=== PATIENT | male | born 1960 | race Caucasian/White ===

== ENCOUNTER 2016-12-21 11:04 | Inpatient (IN) | payer MEDICARE, OTHER ==
[~2016-12-21] VITALS: Ht 195.6 cm; Wt 123.9 kg
[~2016-12-21 11:04] MED LIST: AMLO10TA2 PO; CLON0.1T PO; ESOM20CA PO; FENO48TA16 PO; FURO20TA3 PO; INSU100C4 SQ; INSU100V8 SQ; LIRA0.6P2 SQ; LISI40TA PO; PHEN15TA2 PO; SIMV10TA3 PO; SPIR25TA3 PO; TAMS0.4C2 PO
--- NOTE | 2016-12-21 11:29 | PHYS DOC ---
Adult General Chief Complaint Chief Complaint: HYPERGLYCEMIA HPI HPI Patient is a 56-year-old male brought to the ED by family members with the complaint of elevated blood sugar. Patient is a diabetic, also a peritoneal dialysis patient. Patient states that he has been sick with a cold since about last week and his blood sugars have been running high. Also for the last few days he feels like his gastritis has been flaring up and is had a decreased appetite. He did see Dr. Momin and is taking Carafate for that. Patient has had a cough, no shortness of air. He's had a decreased appetite and abdominal discomfort has improved since starting Carafate. His usual regimen is NovoLog 70/30, 35 units in the morning, 55 units at noon, 45 units with dinner. Lantus 75 mg at bedtime. For about 2-3 days, he has been out of NovoLog and has been substituting Humalog. Last dose of insulin was 55 units of Humalog about 10:30 this morning. His Accu- Chek had been greater than 600 at that time. Patient does peritoneal dialysis every night. He has not missed dialysis. PCP Dr. Momin [place] [employer] Member Dr. Paulino Review of Systems Review of Systems Constitutional: Denies fever or chills [] HENT: He had a cold last week which is clearing up Respiratory: He still has a cough, nonproductive Cardiovascular: Denies chest pain GI: As in history of present illness : He does make urine Musculoskeletal: Denies back pain or joint pain [] Integument: Denies rash or skin lesions [] Neurologic: Denies headache, focal weakness or sensory changes [] Endocrine: Positive for polyuria since his blood sugar has been running high Allergies Allergies Allergies Coded Allergies Type Severity Reaction Last Updated Verified adhesive Allergy Unknown 08/14/14 Yes latex Allergy Unknown 08/14/14 Yes Physical Exam Physical Exam Constitutional: Well developed, well nourished, no acute distress, non-toxic appearance. Appears to not feel well but is alert and mentating normally, warm and dry. HENT: Normocephalic, atraumatic, bilateral external ears normal, nose normal. [ ] Eyes: conjunctiva normal, no discharge. [] Neck: Normal range of motion, no stridor. [] Cardiovascular:Heart rate regular rhythm, no murmur [] Lungs & Thorax: Bilateral breath sounds clear to auscultation [] Abdomen: Bowel sounds normal, soft, no tenderness, nondistended, no masses, no pulsatile masses. PD catheter noted in the abdominal wall with bandage. Skin: Warm, dry, no erythema, no rash. [] Extremities: No tenderness, no cyanosis, no clubbing, ROM intact, no edema. [] Neurologic: Alert and oriented X 3, normal motor function, normal sensory function, no focal deficits noted. [] EKG EKG 12-lead EKG read by me. Sinus rhythm. Heart rate 89. There are no acute ST or T wave changes indicative of ischemia or infarction. No STEMI. No other abnormality. 1135[] Radiology/Procedures Radiology/Procedures One view portable chest x-ray read by the radiologist. No acute findings.[] Course & Med Decision Making Course & Med Decision Making Pertinent Labs and Imaging studies reviewed. (See chart for details) 56-year-old male, diabetic, dialysis patient, presents with elevated blood sugar for several days, greater than 600 today. He did recently run out of NovoLog 70/30 but he has been substituting Humalog, that seems unlikely to be contributing. His sugar was running high before that happened. Likely trigger is an illness with a cold last week, continued cough, and some abdominal discomfort for a few days that he attributes to gastritis. I advised the patient we will get some labs, chest x-ray, EKG, and give him some IV fluids and insulin, and we will anticipate admission. He is agreeable to that plan. Labs concerning for marked hyperglycemia at 1234. Elevated lipase over 6000. The patient remained stable and talkative. He did complain of some abdominal discomfort and I ordered fentanyl for that. I discussed the case with Dr. Momin, who would like to admit the patient to the ICU. We agreed that the patient is stable at this time and can be admitted to [facility]. He will admit the patient. I wrote bridge orders. [] Dragon Disclaimer Dragon Disclaimer This chart was dictated in whole or in part using Voice Recognition software in a busy, high-work load, and often noisy Emergency Department environment. It may contain unintended and wholly unrecognized errors or omissions. Departure Departure: Impression: Primary Impression: Hyperglycemia due to type 2 diabetes mellitus Additional Impressions: Pancreatitis Dehydration Disposition: ADMITTED INPATIENT Admitting Physician: Baron Momin Condition: STABLE Referrals: BARON MOMIN MD (PCP) Problem Qualifiers EGRRI DALAL MD Dec 21, 2016 11:29
[2016-12-21] MEDS ORDERED: INSULIN REGULAR 100 UNIT/ML 10ML VIAL. IV ONE (11:45)
[2016-12-21] MEDS ORDERED: IV NORMAL SALINE 500ML 500 ML IV ONE (11:45)
[2016-12-21 11:46] LABS: BASO % 1 % (0-3); EOS # 0.1 x10^3/uL (0.0-0.7); EOS % 2 % (0-3); HEMATOCRIT 32.6 % (39.0-53.0); HEMOGLOBIN 11.2 g/dL (13.0-17.5); LYMPH # 0.6 x10^3/uL (1.0-4.8); LYMPH % 8 % (24-48); MEAN CORPUSCULAR HEMOGLOBIN 33 pg (25-35); MEAN CORPUSCULAR HGB CONC 34 g/dL (31-37); MEAN CORPUSCULAR VOLUME 95 fL (79-100); MONO # 0.2 x10^3/uL (0.0-1.1); MONO % 3 % (0-9); NEUT # 6.3 x10^3uL (1.8-7.7); NEUT % 86 % (31-73); PLATELET COUNT 180 x10^3/uL (140-400); RED BLOOD COUNT 3.43 x10^6/uL (4.30-5.70); RED CELL DISTRIBUTION WIDTH 12.9 % (11.5-14.5); WHITE BLOOD COUNT 7.3 x10^3/uL (4.0-11.0)
--- NOTE | 2016-12-21 11:49 | RAD ---
Indication cough. Hypertension. A single view of the chest was obtained. Comparison is made to an examination April 21, 2007. The heart and pulmonary vessels are normal. The mediastinum has a normal appearance. Granulomas in the left lung are noted, unchanged. There has not been a significant change in the appearance of the chest compared to the previous exam. IMPRESSION: No acute or focal process. No significant change
[2016-12-21 12:02] LABS: ALBUMIN 2.9 g/dL (3.4-5.0); ALBUMIN/GLOBULIN RATIO 0.7 (1.0-1.7); CALCIUM 9.3 mg/dL (8.5-10.1); CREATININE 7.2 mg/dL (0.7-1.3); POTASSIUM 3.4 mmol/L (3.5-5.1); TOTAL BILIRUBIN 0.6 mg/dL (0.2-1.0)
--- NOTE | 2016-12-21 12:17 | EKG ---
[address] [address] Test Date: 2016-12-21 Test Time: 11:35:32 Pat Name: LOY KLEIN Department: Room: Gender: M Water/Wastewater Engineer: HAN : 1960 Requested By: GERRI DALAL Order Number: [id number] Reading MD: Itz Kurtz Measurements Intervals [place] Rate: 89 P: -58 NC: 152 QRS: 26 QRSD: 118 T: 42 QT: 372 QTc: 459 Interpretive Statements SINUS RHYTHM Electronically Signed On 12-26-2016 10:22:35 CDT by Itz Kurtz
[2016-12-21 12:34] LABS: BACTERIA,URINE 0 /HPF (0-FEW); BILIRUBIN,URINE NEG (NEG); CLARITY,URINE CLEAR; COLOR,URINE YELLOW; GLUCOSE,URINE >=1000 mg/dL (NEG); NITRITE,URINE NEG (NEG); RBC,URINE RARE /HPF (0-2); SQUAMOUS EPITHELIAL CELL,UR OCC /LPF; UROBILINOGEN,URINE 0.2 mg/dL (0.2 mg/dL); WBC,URINE RARE /HPF (0-4)
[2016-12-21] MEDS ORDERED: IV NORMAL SALINE 1,000ML 1,000 ML IV SCH ×2 (12:42→18:04)
[2016-12-21] MEDS ORDERED: ONDANSETRON PF 4 MG/2 ML VIAL. IV PRN (12:45)
[2016-12-21] MEDS ORDERED: fentaNYL PF 100 MCG/2 ML VIAL IV ONE (13:30)
[2016-12-21 14:40] VITALS: BP 110/72
--- NOTE | 2016-12-21 14:40 | NUR ---
56 year old male pt of Dr. Momin admitted for hyperglycemia, pancreatitis and dehydration. Pt has not felt well for 1 week and the past 3-4 days has increasingly got worse. Dialysis nurse insisted he go to the ER today so his family brought him in. Blood sugar was 1,234. Pt is down 32 pounds since 11/17/16. He stated that he has had abdominal pain and vomiting. Pt is weak and unsteady. 20g IV in right fore arm from the ER, pt is saline locked at this time. In the ER he was given a 1/2 liter of fluid and NS was running at 200/hr, 10u of Novolog and 50mcg fentanyl. Pt does peritoneal dialysis at home and had brought all equipment, however after talking to his dialysis nurse, pt can not have dialysis equipment brought into hospital. Pt will be transferred to [facility] tomorrow for dialysis and care since his human service technician is there. Pt is NPO and rates pain 3/10 in abdomen, c/o being very fatigued. Pt usually wears a bi-pap at home for sleep apnea. There is a boil on his LLQ of abdomen, wound care was consulted and saw pt and cultured the drainage. He currently has aquacell ag and a dressing that does not need to be changed until the . Pt has family at bedside and denies further needs at this time. Family will take all dialysis equipment home. Only belongings pt has is his glasses and a cell phone.
[2016-12-21 17:25] VITALS: BP 102/72
[2016-12-21] MEDS ORDERED: INSULIN REGULAR 150 UNIT in 0.9 % SODIUM CHLORIDE 150ML 150 ML IV PRN (18:15)
[2016-12-21] MEDS ORDERED: POTASSIUM CHLORIDE 10MEQ 100 ML IV PRN ×5 (18:15)
[2016-12-21] MEDS ORDERED: VANCOMYCIN PER PHARMACY MC PRN (18:15)
[2016-12-21] MEDS ORDERED: fentaNYL PF 100 MCG/2 ML VIAL IV PRN (18:45)
[2016-12-21] MEDS ORDERED: ONDANSETRON ODT 4 MG TAB.RAPDIS PO PRN (18:45)
[2016-12-21 19:11] VITALS: BP 116/71
[2016-12-21 19:22] LABS: BGAS PH 7.47 (7.35-7.46)
[2016-12-21 19:31] LABS: CALCIUM 9.9 mg/dL (8.5-10.1); GFR 8.2; PHOSPHORUS 5.6 mg/dL (2.6-4.7); POTASSIUM 3.3 mmol/L (3.5-5.1)
[2016-12-21 19:32] LABS: BASO % 0 % (0-3); EOS # 0.2 x10^3/uL (0.0-0.7); EOS % 2 % (0-3); HEMATOCRIT 31.1 % (39.0-53.0); HEMOGLOBIN 11.2 g/dL (13.0-17.5); LYMPH # 1.2 x10^3/uL (1.0-4.8); LYMPH % 12 % (24-48); MEAN CORPUSCULAR HEMOGLOBIN 33 pg (25-35); MEAN CORPUSCULAR HGB CONC 36 g/dL (31-37); MEAN CORPUSCULAR VOLUME 91 fL (79-100); MONO # 0.5 x10^3/uL (0.0-1.1); MONO % 5 % (0-9); NEUT # 8.1 x10^3uL (1.8-7.7); NEUT % 80 % (31-73); PLATELET COUNT 203 x10^3/uL (140-400); RED BLOOD COUNT 3.42 x10^6/uL (4.30-5.70); RED CELL DISTRIBUTION WIDTH 12.6 % (11.5-14.5); WHITE BLOOD COUNT 10.1 x10^3/uL (4.0-11.0)
--- NOTE | 2016-12-21 19:45 | NUR ---
Called Dr. Momin and clarified orders for insulin and blood glucose checks. Informed him that pt is also requesting Benadryl that he takes at home every night. V/U stated. orders received for q4hr FSBS with SSI and gradually bring blood sugars down, keep pt NPO, ok to start Benadryl.
[2016-12-21] MEDS ORDERED: VANCOMYCIN 2 GM in IV NORMAL SALINE 500ML 500 ML IV ONE (20:00)
[2016-12-21 20:09] VITALS: BP 115/67
--- NOTE | 2016-12-21 20:15 | NUR ---
Pharmacy Vancomycin Dosing Note S:Consulted to monitor and dose vancomycin started 12/21/16. O:LOY KLEIN is a 56 year old M with Cellulitis . Height: 6 feet, 5 inches Weight: 120.855284 kg [place] Body Weight: 89.10 Adjusted Body Weight: 101.82 Dosing Weight: Actual Other Antibiotics: LEVOFLOXACIN LABS: Last BUN: 69 Last Creatinine: 7.0 Creatinine Clearance: 17.37 Last WBC: 10.1 Last Platelets: 203 Vancomycin Dosing: Loading Dose: 2000 mg x1 Dosing Weight: Actual Target Trough: 10-20 A: Based on: Actual weight, renal function and indication P: 1. Begin Vancomycin 1750 mg IV q48h 2. Follow up level 3. Pharmacy will continue to monitor, follow and adjust therapy as needed. ERLINDA LEMON, 12/21/162014
--- NOTE | 2016-12-21 20:16 | NUR ---
PHARMACY DOSING NOTE FOR LEVOFLOXACIN: Levofloxacin 500mg IV q48hr based on renal function (CrCl of 17.37) and indication. Pharmacy will continue to monitor.
[2016-12-21] MEDS ORDERED: diphenhydrAMINE HCL 25 MG CAPSULE PO PRN (21:00)
[2016-12-21] MEDS ORDERED: ENOXAPARIN 30 MG/0.3 ML DISP.SYRIN. SQ SCH (21:00)
--- NOTE | 2016-12-21 21:11 | HP ---
ADMIT DATE: 12/21/2016 HISTORY OF PRESENT ILLNESS: A 56-year-old gentleman in with acute DKA and acute on top of chronic renal failure. The patient apparently has not been feeling well for the last couple of weeks, several stressful events with his family with father having stroke, brother dying, but at any case, the patient said he stopped taking insulin, did not feel like eating, felt sick and had more abdominal pain here in the last couple of weeks. Finally, he called his dialysis. He has peritoneal dialysis. They told him to come to the ER. His sugar on admission was 1200. His creatinine was 7.2. Sodium was only 122. Lipase was also 6900. The patient himself is very stoic, said he was having some abdominal pain, but other than that, the patient said he was not having too much pain, controlled with his situation with some IV fentanyl, but obviously needed a DKA type protocol with increased fluids as well as insulin and bringing that down. PAST MEDICAL HISTORY: The patient has a history of cardiac symptoms followed by [facility]. He also has a history of hypertension, congestive heart failure, has a history obviously of type 1 diabetes since he has had for most of his life. He has had history of abdominal pain, anuria, renal failure, obviously, joint replacements, history of skin cancers. ALLERGIES: ADHESIVES AND LATEX. HOME MEDICATIONS: Includes amlodipine 10 mg, clonidine 0.1 mg b.i.d., Nexium 20 mg daily, Tricor daily, furosemide 20 mg, NovoLog 100 units, Lantus, Victoza 1.8 mg subQ daily, lisinopril 40 mg, phenobarbital 15 mg, Zocor 10 mg, spironolactone 25 mg, Flomax 0.4 mg. FAMILY HISTORY: Positive for cancer, diabetes. SOCIAL HISTORY: The patient denies smoking, alcohol or drug use. Lives at home, on peritoneal dialysis. REVIEW OF SYSTEMS: The patient complains of abdominal pain primarily in the epigastric and in the right mid and right lower quadrant area. He has had some nausea, but no vomiting. He has had some problems with his bowels with diarrhea and alike. CT scan pending there. Otherwise, denies any melena, hematochezia, hematemesis. He has been urinating fairly freely. Bladder scan here was negative after emptying his urine. In any case, he denies chest pain, shortness of breath. Denies headaches, visual changes, although he does act a little bit confused, but to be appropriate with high blood sugar and creatinine and probably dehydrated as well. PHYSICAL EXAMINATION: GENERAL: This is a very pleasant gentleman, considering his situation is doing extremely well. VITAL SIGNS: Blood pressure 130/78, respirations 18, pulse 90, afebrile. Room air at 95%. HEENT: The patient's head was atraumatic, normocephalic. Eyes: PERRLA without jaundice. Mouth and throat: Poor dentition. NECK: Supple, without JVD, carotid bruits. No thyromegaly. LUNGS: Diminished throughout, but clear. CARDIOVASCULAR: Regular sinus rhythm. ABDOMEN: Soft. There is definite tenderness in the epigastric, periumbilical, right mid to right lower quadrant areas. He has a peritoneal dialysis tube on the left abdomen, shows some type of an abscess. Cultures have been taken and he was started on antibiotics for such. Positive bowel sounds, but tender, slight guarding, no rebounding. EXTREMITIES: No clubbing, cyanosis, or edema. Pulses noted to be decreased in the extremities. NEUROLOGIC: The patient was alert and oriented x 3. Speech fluent, spontaneous, appropriate, although somewhat diminished probably from dehydration and alike. IMPRESSION AND PLAN: The patient otherwise will be monitored carefully. The patient's sugar down to 552 with IV insulin. We will put on insulin DKA protocol, although his urine just shows trace amounts of ketones and troponins have been stable. We will repeat mostly his test. We need to get the sodium up. Severe hyperglycemia, sugar greater than 1200, pancreatitis with lipase greater than 6900, hyponatremia, hypokalemia, acute on top of chronic renal failure, on peritoneal dialysis. The patient will continue to be monitored carefully here in the ICU in critical condition. We will consult with [facility] for possible transfer, not only for Cardiology consultation, but also for his dialysis and renal evaluation as well. RAÚL CASILLAS MD DR: WAYNE/ulisses JOB#: [id number] / [id number]
[2016-12-21] MEDS ORDERED: DEXTROSE 50% 25 GM / 50ML DISP.SYRIN. IV PRN (21:30)
[2016-12-21 21:37] VITALS: BP 124/80
[2016-12-21] MEDS: INSULIN ASPART 300 UNITS/3 ML INSULN.PEN SQ SCH (22:45)
[2016-12-21 23:42] VITALS: BP 137/71
[2016-12-22] VITALS (10 sets, daily range): BP systolic 136–164; BP diastolic 69–84
[2016-12-22] MEDS: INSULIN ASPART 300 UNITS/3 ML INSULN.PEN SQ SCH ×3 (00:09→08:19)
[2016-12-22] MEDS ORDERED: FOLI0.8T33 PO (05:01)
[2016-12-22] MEDS ORDERED: POLY17PO5 PO (05:01)
[2016-12-22] MEDS ORDERED: SEVE800T9 PO (05:01)
[2016-12-22] MEDS ORDERED: CALC0.2530 PO (05:01)
[2016-12-22] MEDS ORDERED: FENO145T32 PO (05:01)
[2016-12-22] MEDS ORDERED: FURO80TA3 PO (05:01)
[2016-12-22] MEDS ORDERED: FISH12002 PO (05:01)
[2016-12-22] MEDS ORDERED: CARV12.52 PO (05:01)
[2016-12-22] MEDS ORDERED: DIPH25CA58 PO (05:01)
[2016-12-22 06:44] LABS: ALBUMIN 2.6 g/dL (3.4-5.0); ALBUMIN/GLOBULIN RATIO 0.7 (1.0-1.7); CALCIUM 9.4 mg/dL (8.5-10.1); CREATININE 6.5 mg/dL (0.7-1.3); POTASSIUM 3.3 mmol/L (3.5-5.1); TOTAL BILIRUBIN 0.4 mg/dL (0.2-1.0); TOTAL PROTEIN 6.4 g/dL (6.4-8.2)
[2016-12-22 06:53] LABS: BASO % 0 % (0-3); EOS # 0.2 x10^3/uL (0.0-0.7); EOS % 3 % (0-3); HEMATOCRIT 29.3 % (39.0-53.0); HEMOGLOBIN 10.3 g/dL (13.0-17.5); LYMPH # 1.3 x10^3/uL (1.0-4.8); LYMPH % 15 % (24-48); MEAN CORPUSCULAR HEMOGLOBIN 33 pg (25-35); MEAN CORPUSCULAR HGB CONC 35 g/dL (31-37); MEAN CORPUSCULAR VOLUME 92 fL (79-100); MONO # 0.4 x10^3/uL (0.0-1.1); MONO % 5 % (0-9); NEUT # 6.6 x10^3uL (1.8-7.7); NEUT % 77 % (31-73); PLATELET COUNT 167 x10^3/uL (140-400); RED BLOOD COUNT 3.17 x10^6/uL (4.30-5.70); RED CELL DISTRIBUTION WIDTH 12.3 % (11.5-14.5); WHITE BLOOD COUNT 8.6 x10^3/uL (4.0-11.0)
--- NOTE | 2016-12-22 08:15 | NUR ---
Pt remains stable at this time, states he is feeling much better. BS elevated at 488, 7 units given this AM; will recheck blood sugar. Pt states he has been in the 600's for a few weeks but remains in the 3-400's at home. Pt continues on IV fluids at this time. Awaiting CTA results at this time.
[2016-12-22] MEDS ORDERED: PANTOPRAZOLE 40 MG TABLET. PO SCH (09:00)
--- NOTE | 2016-12-22 09:02 | RAD ---
Examination: CT of the abdomen pelvis without contrast History: History of abdominal pain, pancreatitis. Comparison: 08/18/2014 Technique: Axial CT images of the abdomen pelvis were performed without contrast. Coronal sagittal reformats are performed. PQRS Compliance Statement: One or more of the following individualized dose reduction techniques were utilized for this examination: 1. Automated exposure control 2. Adjustment of the mA and/or kV according to patient size 3. Use of iterative reconstruction technique Findings: Mild bibasal lung atelectasis identified. No evidence of free air identified. Examination is limited due to lack of IV contrast and oral contrast. The visualized noncontrasted liver, spleen, grossly appears unremarkable. There is a small nodule identified in the left adrenal gland measuring 1.5 cm and a 1.4 cm nodule identified in the right adrenal gland measuring 4 and 2 Hounsfield units likely lipid rich adrenal adenomas. There is [id number] inflammatory fat stranding identified around the pancreas. The stomach is mildly distended. The gallbladder is mildly distended. The small bowel is nondilated. Feces and gas noted in the colon. Small amount of free fluid identified in the pelvis. Few colon diverticula identified. A peritoneal dialysis catheter identified in the left lower quadrant of the abdomen. The appendix is normal Multiple cystic structures identified in the bilateral kidneys with the largest measuring 2.2 cm in the right kidney probably cysts however examination is limited without IV contrast. There is a small exophytic density measuring 1.2 cm in the right kidney measuring 2 Hounsfield units probably a cyst. Mild atrophic appearing bilateral kidneys. No evidence of hydronephrosis. The urinary bladder is mildly distended. 2 screws are identified in the posterior left acetabulum. Moderate degenerative changes lumbar spine. Impression: 1. Mild to moderate inflammatory fat stranding identified around the pancreas likely acute pancreatitis. 2. Atrophic appearing bilateral kidneys with bilateral cystic structures largest measuring 2.2 cm probably cysts however examination is limited without IV contrast. 3. Small amount of free fluid identified in the pelvis. 4. Bibasal lung airspace opacities likely atelectasis or infiltrate. 5. Small bilateral adrenal nodules probably adrenal adenomas.
--- NOTE | 2016-12-22 09:05 | NUR ---
Angi TERRITORY SALES REPRESENTATIVE for [facility] here states she spoke with Dr. Momin in regards to transferring patient to today to continue peritoneal dialysis. Pt agrees with transfer. Notified form building supervisor at this time.
--- NOTE | 2016-12-22 09:40 | PDOC ---
BEVERLY JARQUIN HOUSEKEEPING DEPARTMENT WORKER 12/22/16 0940: PROGRESS NOTES Diagnosis Problem Problems Medical Problems: (1) Dehydration Status: Acute (2) Hyperglycemia due to type 2 diabetes mellitus Status: Acute (3) Pancreatitis Status: Acute Assessment Patient seen and examined. We will plan on transferring him to [facility] and doing the full consult there. Transfer line called and nurse-practitioner at [facility] made aware of transfer. Problems: Objective Vital Signs Date Time Temp Pulse Resp B/P (MAP) Pulse Ox O2 Delivery O2 Flow Rate FiO2 12/22/16 08:30 76 16 164/74 (104) 96 Room Air 12/22/16 08:00 97.8 Intake and Output 12/23/16 07:00 Intake Total 0 ml Output Total 175 ml Balance -175 ml Intake Oral 0 ml Output Urine Total 175 ml Review of Relevant I have reviewed the following items shane (where applicable) has been applied. Labs Laboratory Tests Test 12/21/16 11:28 12/21/16 12:11 12/21/16 18:10 12/21/16 18:52 White Blood Count 7.3 x10^3/uL (4.0-11.0) 10.1 x10^3/uL (4.0-11.0) Red Blood Count 3.43 x10^6/uL (4.30-5.70) 3.42 x10^6/uL (4.30-5.70) Hemoglobin 11.2 g/dL (13.0-17.5) 11.2 g/dL (13.0-17.5) Hematocrit 32.6 % (39.0-53.0) 31.1 % (39.0-53.0) Mean Corpuscular Volume 95 fL (79-100) 91 fL (79-100) Mean Corpuscular Hemoglobin 33 pg (25-35) 33 pg (25-35) Mean Corpuscular Hemoglobin Concent 34 g/dL (31-37) 36 g/dL (31-37) Red Cell Distribution Width 12.9 % (11.5-14.5) 12.6 % (11.5-14.5) Platelet Count 180 x10^3/uL (140-400) 203 x10^3/uL (140-400) Neutrophils (%) (Auto) 86 % (31-73) 80 % (31-73) Lymphocytes (%) (Auto) 8 % (24-48) 12 % (24-48) Monocytes (%) (Auto) 3 % (0-9) 5 % (0-9) Eosinophils (%) (Auto) 2 % (0-3) 2 % (0-3) Basophils (%) (Auto) 1 % (0-3) 0 % (0-3) Neutrophils # (Auto) 6.3 x10^3uL (1.8-7.7) 8.1 x10^3uL (1.8-7.7) Lymphocytes # (Auto) 0.6 x10^3/uL (1.0-4.8) 1.2 x10^3/uL (1.0-4.8) Monocytes # (Auto) 0.2 x10^3/uL (0.0-1.1) 0.5 x10^3/uL (0.0-1.1) Eosinophils # (Auto) 0.1 x10^3/uL (0.0-0.7) 0.2 x10^3/uL (0.0-0.7) Basophils # (Auto) 0.0 x10^3/uL (0.0-0.2) 0.0 x10^3/uL (0.0-0.2) Sodium Level 122 mmol/L (136-145) 130 mmol/L (136-145) Potassium Level 3.4 mmol/L (3.5-5.1) 3.3 mmol/L (3.5-5.1) Chloride Level 85 mmol/L (98-107) 90 mmol/L (98-107) Carbon Dioxide Level 27 mmol/L (21-32) 27 mmol/L (21-32) Anion Gap 10 (6-14) 13 (6-14) Blood Urea Nitrogen 68 mg/dL (8-26) 69 mg/dL (8-26) Creatinine 7.2 mg/dL (0.7-1.3) 7.0 mg/dL (0.7-1.3) Estimated GFR (Cockcroft-Gault) 8.0 8.2 BUN/Creatinine Ratio 9 (6-20) Glucose Level 1234 mg/dL (70-99) 525 mg/dL (70-99) Calcium Level 9.3 mg/dL (8.5-10.1) 9.9 mg/dL (8.5-10.1) Total Bilirubin 0.6 mg/dL (0.2-1.0) Aspartate Amino Transf (AST/SGOT) 9 U/L (15-37) Alanine Aminotransferase (ALT/SGPT) 19 U/L (16-63) Alkaline Phosphatase 47 U/L (46-116) Creatine Kinase 62 U/L (39-308) Creatine Kinase MB (Mass) 5.3 ng/mL (0.0-3.6) Creatine Kinase MB Relative Index 8.5 % (0-4) Troponin I Quantitative < 0.017 ng/mL (0-0.055) Total Protein 7.0 g/dL (6.4-8.2) Albumin 2.9 g/dL (3.4-5.0) Albumin/Globulin Ratio 0.7 (1.0-1.7) Lipase 6912 U/L (73-393) Urine Collection Type Unknown Urine Color Yellow Urine Clarity Clear Urine pH 5.5 Urine Specific [place] <=1.005 Urine Protein Trace (NEG-TRACE) Urine Glucose (UA) >=1000 mg/dL (NEG) Urine Ketones (Stick) Trace mg/dL (NEG) Urine Blood Small (NEG) Urine Nitrite Neg (NEG) Urine Bilirubin Neg (NEG) Urine Urobilinogen Dipstick 0.2 mg/dL (0.2 mg/dL) Urine Leukocyte Esterase Neg (NEG) Urine RBC Rare /HPF (0-2) Urine WBC Rare /HPF (0-4) Urine Squamous Epithelial Cells Occ /LPF Urine Bacteria 0 /HPF (0-FEW) Glucose (Fingerstick) 552 mg/dL (70-99) Blood Gas pH 7.47 (7.35-7.46) Blood Gas PCO2 36 mmHg (35-46) Blood Gas PO2 102 mmHg (80-100) Blood Gas HCO3 26 mmol/L (21-28) Arterial Bld O2 Saturation (Calc) 98 % (92-99) FiO2 21 % Phosphorus Level 5.6 mg/dL (2.6-4.7) Acetone Level Neg (NEG) Test 12/21/16 22:28 12/21/16 23:54 12/22/16 04:03 12/22/16 05:59 Glucose (Fingerstick) 524 mg/dL (70-99) 531 mg/dL (70-99) 429 mg/dL (70-99) White Blood Count 8.6 x10^3/uL (4.0-11.0) Red Blood Count 3.17 x10^6/uL (4.30-5.70) Hemoglobin 10.3 g/dL (13.0-17.5) Hematocrit 29.3 % (39.0-53.0) Mean Corpuscular Volume 92 fL (79-100) Mean Corpuscular Hemoglobin 33 pg (25-35) Mean Corpuscular Hemoglobin Concent 35 g/dL (31-37) Red Cell Distribution Width 12.3 % (11.5-14.5) Platelet Count 167 x10^3/uL (140-400) Neutrophils (%) (Auto) 77 % (31-73) Lymphocytes (%) (Auto) 15 % (24-48) Monocytes (%) (Auto) 5 % (0-9) Eosinophils (%) (Auto) 3 % (0-3) Basophils (%) (Auto) 0 % (0-3) Neutrophils # (Auto) 6.6 x10^3uL (1.8-7.7) Lymphocytes # (Auto) 1.3 x10^3/uL (1.0-4.8) Monocytes # (Auto) 0.4 x10^3/uL (0.0-1.1) Eosinophils # (Auto) 0.2 x10^3/uL (0.0-0.7) Basophils # (Auto) 0.0 x10^3/uL (0.0-0.2) Sodium Level 132 mmol/L (136-145) Potassium Level 3.3 mmol/L (3.5-5.1) Chloride Level 96 mmol/L (98-107) Carbon Dioxide Level 24 mmol/L (21-32) Anion Gap 12 (6-14) Blood Urea Nitrogen 73 mg/dL (8-26) Creatinine 6.5 mg/dL (0.7-1.3) Estimated GFR (Cockcroft-Gault) 9.0 BUN/Creatinine Ratio 11 (6-20) Glucose Level 439 mg/dL (70-99) Calcium Level 9.4 mg/dL (8.5-10.1) Magnesium Level 2.1 mg/dL (1.8-2.4) Total Bilirubin 0.4 mg/dL (0.2-1.0) Aspartate Amino Transf (AST/SGOT) 7 U/L (15-37) Alanine Aminotransferase (ALT/SGPT) 17 U/L (16-63) Alkaline Phosphatase 40 U/L (46-116) Total Protein 6.4 g/dL (6.4-8.2) Albumin 2.6 g/dL (3.4-5.0) Albumin/Globulin Ratio 0.7 (1.0-1.7) Amylase Level 67 U/L (25-115) Lipase 2790 U/L (73-393) Test 12/22/16 07:58 Glucose (Fingerstick) 448 mg/dL (70-99) Medications Current Medications Sodium Chloride 500 ml @ 0 mls/hr 1X ONCE IV Last administered on 12/21/16 11 :42; Start 12/21/16 at 11:45; Stop 12/21/16 at 11:46; Status DC Insulin Human Regular (NovoLIN R) 10 unit 1X ONCE IV Last administered on 12/21 11:42; Start 12/21/16 at 11:45; Stop 12/21/16 at 11:46; Status DC Ondansetron HCl (Zofran) 4 mg PRN Q4HRS PRN IV NAUSEA/VOMITING; Start 12/21/16 at 12:45; Stop 12/22/16 at 12:44 Sodium Chloride 1,000 ml @ 200 mls/hr Q5H IV Last administered on 12/21/16 12 :42; Start 12/21/16 at 12:42; Stop 12/21/16 at 18:44; Status DC Fentanyl Citrate (Fentanyl 2ml Vial) 50 mcg 1X ONCE IV Last administered on 13:35; Start 12/21/16 at 13:30; Stop 12/21/16 at 13:31; Status DC Sodium Chloride 1,000 ml @ 0 mls/hr Q0M IV ; Start 12/21/16 at 18:04 Insulin Human Regular 150 unit/ Sodium Chloride 151.5 ml @ 0 mls/hr CONT PRN PRN IV PER PROTOCOL; Start 12/21/16 at 18:15 Potassium Chloride 100 ml @ 100 mls/hr PRN Q1HR PRN IV SEE COMMENTS; Start at 18:15 Potassium Chloride 100 ml @ 100 mls/hr PRN Q1HR PRN IV SEE COMMENTS Last administered on 12/22/16 00:08; Start 12/21/16 at 18:15 Potassium Chloride 100 ml @ 100 mls/hr PRN Q1HR PRN IV SEE COMMENTS; Start at 18:15 Potassium Chloride 100 ml @ 100 mls/hr PRN Q1HR PRN IV SEE COMMENTS; Start at 18:15 Potassium Chloride 100 ml @ 100 mls/hr PRN Q1HR PRN IV SEE COMMENTS; Start at 18:15 Vancomycin HCl (Vanco Per Pharmacy) 1 each PRN DAILY PRN MC SEE COMMENTS Last administered on 12/21/16 20:11; Start 12/21/16 at 18:15 Levofloxacin/ Dextrose (Levaquin Per Pharmacy) 1 each PRN DAILY PRN MC SEE COMMENTS Last administered on 12/21/16 20:10; Start 12/21/16 at 18:15 Pantoprazole Sodium (Protonix) 40 mg DAILY PO Last administered on 12/22/16 08 :21; Start 12/22/16 at 09:00 Enoxaparin Sodium (Lovenox) 30 mg Q24H SQ Last administered on 12/21/16 20:43 ; Start 12/21/16 at 21:00 Levofloxacin/ Dextrose 100 ml @ 100 mls/hr Q48H IV Last administered on 20:41; Start 12/21/16 at 19:00 Vancomycin HCl 2 gm/Sodium Chloride 500 ml @ 250 mls/hr 1X ONCE IV Last administered on 12/21/16 22:44; Start 12/21/16 at 20:00; Stop 12/21/16 at 21:59 ; Status DC Vancomycin HCl 1.75 gm/Sodium Chloride 500 ml @ 250 mls/hr Q48H IV ; Start at 20:00 Fentanyl Citrate (Fentanyl 2ml Vial) 25 mcg PRN Q2HR PRN IV pain; Start at 18:45 Ondansetron HCl (Zofran Odt) 4 mg PRN Q8HRS PRN PO NAUSEA/VOMITING; Start 12/21 at 18:45 Diphenhydramine HCl (Benadryl) 50 mg PRN QHS PRN PO ITCHING Last administered on 12/21/16 22:43; Start 12/21/16 at 21:00 Insulin Aspart (NovoLOG) 0-7 UNITS Q4HRS SQ Last administered on 12/22/16 08: 19; Start 12/22/16 at 00:00 Dextrose 12.5 gm PRN Q15MIN PRN IV SEE COMMENTS; Start 12/21/16 at 21:30 Insulin Aspart (NovoLOG) 10 units TIDAC SQ ; Start 12/22/16 at 11:30 Active Scripts Active Reported Renvela (Sevelamer Carbonate) 800 Mg Tablet 1 Tab PO TID Benadryl (Diphenhydramine Hcl) 25 Mg Capsule 50 Mg PO Nephro-Albert Tablet (Folic Acid/Vitamin B Comp W-C) 0.8 Mg Tablet 1 Tab PO DAILY Miralax (Polyethylene Glycol 3350) 17 Gm Powd.pack 1 Packet PO DAILY PRN [place] 3-6-9 1,200 mg Softgel (Fish Oil/Borage/Flax/Om3,6,9#1) 1,200 Mg Capsule 1 Mg PO DAILY Carvedilol 12.5 Mg Tablet 1 Tab PO BID Calcitriol 0.25 Mcg Capsule 1 Cap PO DAILY Tricor (Fenofibrate Nanocrystallized) 145 Mg Tablet 1 Tab PO DAILY Furosemide 80 Mg Tablet 80 Tab PO BID Nexium Capsule (Esomeprazole Magnesium) 20 Mg Capsule.dr 1 Cap PO DAILY Phenobarbital 15 Mg Tablet 15 Mg PO Simvastatin 10 Mg Tablet 1 Tab PO QHS Amlodipine Besylate 10 Mg Tablet 1 Tab PO DAILY Clonidine Hcl 0.1 Mg Tablet 1 Tab PO QHS Tamsulosin Hcl 0.4 Mg Cap.er.24h 1 Cap PO DAILY Lantus (Insulin Glargine,Hum.rec.anlog) 100 Unit/1 Ml Vial 1 Unit SQ Victoza 3-Michael (Liraglutide) 0.6 Mg/0.1 Ml Pen.injctr 1.8 Mg SQ DAILY Novolog (Insulin Aspart) 100 Unit/1 Ml Cartridge 1 Unit SQ Spironolactone 25 Mg Tablet 1 Tab PO DAILY Lisinopril 40 Mg Tablet 1 Tab PO DAILY Vitals/I & O Vital Sign - Last 24 Hours 12/21/16 12/21/16 12/21/16 12/21/16 11:21 11:28 11:50 12:50 Temp 98.2 98.2 Pulse 86 84 89 80 Resp 18 21 17 20 B/P (MAP) 133/78 (96) 125/68 (87) 121/72 (88) Pulse Ox 94 95 O2 Delivery Room Air Room Air 12/21/16 12/21/16 12/21/16 12/21/16 13:20 13:35 14:40 14:45 Pulse 79 83 Resp 18 22 20 B/P (MAP) 118/72 (87) 110/72 (85) Pulse Ox 98 97 O2 Delivery Room Air Room Air Room Air 12/21/16 12/21/16 12/21/16 12/21/16 17:25 19:11 20:00 20:09 Temp 98.6 Pulse 80 76 80 Resp 20 16 17 B/P (MAP) 102/72 (82) 116/71 (86) 115/67 (83) Pulse Ox 97 96 94 O2 Delivery Room Air Room Air Room Air Room Air 12/21/16 12/21/16 12/21/16 12/22/16 21:37 23:42 23:45 00:31 Pulse 81 77 80 Resp 16 14 16 B/P (MAP) 124/80 (95) 137/71 (93) 137/71 (93) Pulse Ox 98 94 93 O2 Delivery Room Air Room Air Room Air Room Air 12/22/16 12/22/16 12/22/16 12/22/16 01:26 01:59 02:56 03:58 Pulse 75 77 75 74 Resp 16 16 12 14 B/P (MAP) 148/74 (98) 136/69 (91) 148/82 (104) 136/70 (92) Pulse Ox 94 95 96 98 O2 Delivery Room Air Room Air Room Air Room Air 12/22/16 12/22/16 12/22/16 12/22/16 04:24 05:02 06:13 07:30 Pulse 71 77 77 Resp 16 16 16 B/P (MAP) 138/78 (98) 137/75 (95) 163/84 (110) Pulse Ox 93 95 93 O2 Delivery Room Air Room Air Room Air Room Air 12/22/16 12/22/16 12/22/16 08:00 08:00 08:30 Temp 97.8 Pulse 76 Resp 16 B/P (MAP) 164/74 (104) Pulse Ox 96 O2 Delivery Room Air Room Air Intake and Output 12/22/16 12/22/16 12/23/16 15:00 23:00 07:00 Intake Total 0 ml Output Total 175 ml Balance -175 ml LUIS MIGUEL PRABHAKAR Jr, MD 12/26/16 1820: PROGRESS NOTES Assessment The patient was seen by Beverly Jarquin APRN and I have reviewed her findings and plan and agree with above. Due to staffing constraints, we did not have an attending available on this day to see the patient. Problems: BEVERLY JARQUIN APRN Dec 22, 2016 09:40 LUIS MIGUEL PRABHAKAR Jr, MD Dec 26, 2016 18:20
--- NOTE | 2016-12-22 10:00 | NUR ---
[facility] unable to accept patient due to no beds being available. Pt agrees to transfer to [facility] for diaylsis treatment. Lining Printer aware and will call transfer line.
--- NOTE | 2016-12-22 11:00 | NUR ---
Spoke with [facility] nurse on [facility] and [facility] in regards to patient transfer at this time. Pt given IV Fentanyl 25mcg given with effectiveness and 10u insulin given prior. [facility] [place] nurse aware.
[2016-12-22 11:06] LABS: AMORPHOUS SEDIMENT,UR PRESENT /HPF; BACTERIA,URINE 0 /HPF (0-FEW); BILIRUBIN,URINE NEG (NEG); CLARITY,URINE CLOUDY; COLOR,URINE YELLOW; GLUCOSE,URINE 500 mg/dL (NEG); NITRITE,URINE NEG (NEG); SQUAMOUS EPITHELIAL CELL,UR OCC /LPF; UROBILINOGEN,URINE 0.2 mg/dL (0.2 mg/dL); WBC,URINE 0 /HPF (0-4)
--- NOTE | 2016-12-22 11:24 | NUR ---
Pt discharged at this time via EMS transport. Pt stable and aware, will be going to room 587. Nurse notified nephew at this time.
[2016-12-22] MEDS ORDERED: INSULIN ASPART 300 UNITS/3 ML INSULN.PEN SQ SCH (11:30)
[2016-12-23] MEDS ORDERED: VANCOMYCIN 1.75 GM in IV NORMAL SALINE 500ML 500 ML IV SCH (20:00)
== END 2016-12-22 11:15 | disposition short-term general hospital (02) | DRG 637 ==
LOC: ER 11:04 → ICU 12:45
PROVIDERS: ADMIT Family Medicine; ATTEND Family Medicine
DX: E13.10 Other specified diabetes mellitus with ketoacidosis without coma (principal); K85.90 Acute pancreatitis without necrosis or infection, unspecified; N17.9 Acute kidney failure, unspecified; I13.0 Hypertensive heart and chronic kidney disease with heart failure and stage 1 through stage 4 chronic kidney disease, or unspecified chronic kidney disease; I50.9 Heart failure, unspecified; E87.1 Hypo-osmolality and hyponatremia; N18.9 Chronic kidney disease, unspecified; E86.0 Dehydration; E87.6 Hypokalemia; Z96.60 Presence of unspecified orthopedic joint implant; Z83.3 Family history of diabetes mellitus; Z79.4 Long term (current) use of insulin; Z99.2 Dependence on renal dialysis; Z85.828 Personal history of other malignant neoplasm of skin; Z91.040 Latex allergy status; Z91.048 Other nonmedicinal substance allergy status; Z82.3 Family history of stroke; Z80.9 Family history of malignant neoplasm, unspecified
CPT/HCPCS: 36415; 36600; 71010; 74176; 80048; 80053; 81001; 82010; 82150; 82553; 82803; 82947; 83605; 83690; 83735; 83880; 83930; 84100; 84484; 85025; 87070; 87641; 93005; 96361; 96374; 96375; J1650; J1815; J1956; J3010; J3370; J3480; J7040; Q0163; 99285-25; J7030

== ENCOUNTER → 2018-03-14 | Outpatient (CLI) | payer MEDICARE, OTHER ==
[2016-12-22 11:04] VITALS: BP 155/80
[~2018-03-14] MED LIST changes: -AMLO10TA2 PO; +AMLO10TA6 PO; +CALC0.2530 PO; +CARV12.547 PO; +DIPH25CA58 PO; +FENO145T32 PO; +FISH12002 PO; +FOLI0.8T33 PO; +FURO80TA3 PO; +POLY17PO5 PO; +SEVE800T9 PO; -SPIR25TA3 PO; +SPIR25TA5 PO
--- NOTE | 2018-03-14 14:34 | RAD ---
CT abdomen pelvis without contrast 03/14/2018 Clinical indications: Dysuria. COMPARISON: CT abdomen pelvis 12/21/2016, 08/18/2014. TECHNIQUE: Multiple CT images of the abdomen and pelvis were obtained without contrast. *One or more of the following individualized dose reduction techniques were utilized for this examination: 1. Automated exposure control. 2. Adjustment of the mA and/or kV according to patient size. 3. Use of iterative reconstruction technique. FINDINGS: Heart size is normal with dense mitral annular calcifications. There is subpleural nodular consolidation in the right lower lobe favored to represent scarring. Evaluation of the solid abdominal pelvic viscera, lymphadenopathy and vasculature is limited in the absence of intravenous contrast. Unenhanced contours of the liver and gallbladder are grossly unremarkable. There are stable bilateral adrenal gland nodules which are too small to definitively characterize, though unchanged since 2014, the largest on the right measuring 0.9 cm series 2/image 48 in the largest on the left measuring 1.0 cm image 41. Stable moderate splenomegaly measuring 16 cm oblique CC. Mild bilateral renal atrophy. No hydronephrosis. There is a punctate 2 mm calcification in the medial superior pole left kidney which is along the cortex and may be dystrophic versus a nonobstructive calculus. There are multiple bilateral renal cysts and additional renal hypodensities which are too small to definitively characterize. Small and large bowel loops are normal in caliber without obstruction. Appendix is normal in appearance. Left anterior abdominal para midline peritoneal dialysis catheter looped in the dependent peritoneum. There is trace abdominal and pelvic free fluid. There is minimal pneumoperitoneum adjacent to the left lobe of the liver series 2/image 32. A few distal colonic diverticula without diverticulitis. Moderate prostate enlargement denting the base of the urinary bladder. The mildly distended unopacified urinary bladder is otherwise unremarkable. No abdominal or pelvic adenopathy. There is lower anterior abdominal subcutaneous stranding and nodularity, likely injection sites. 2 fixation screws of the posterior left acetabulum and old healed fracture deformity. IMPRESSION: 1. Mild bilateral renal atrophy and stable punctate left renal calcification indeterminate between nonobstructive calculus versus dystrophic calcification. 2. No new nephrolithiasis or hydronephrosis. 3. Punctate pneumoperitoneum with development of scant abdominal pelvic free fluid, pneumoperitoneum and fluid likely due to dialysate and catheter manipulation as it has been seen on previous cross-sectional examination. Clinical correlation for peritoneal signs recommended. Electronically signed by: Daniel Luther MD (03/14/2018 2:30 PM) [id number]
== END | disposition home or self-care (01) ==
LOC: CT 10:37
PROVIDERS: ATTEND Family Medicine
DX: N26.1 Atrophy of kidney (terminal) (principal); N40.0 Benign prostatic hyperplasia without lower urinary tract symptoms; N32.89 Other specified disorders of bladder; R16.1 Splenomegaly, not elsewhere classified
CPT/HCPCS: 74176

== ENCOUNTER → 2018-03-16 | Outpatient (CLI) | payer MEDICARE, OTHER ==
[2016-12-22 11:04] VITALS: BP 155/80
--- NOTE | 2018-03-17 16:26 | RAD ---
Renal ultrasound dated 03/16/2018. No comparison available. Clinical indication: Dysuria. FINDINGS: Right kidney measures 11.8 cm in length. Left kidney measures 9.3 cm in length. No hydronephrosis. There are multiple cysts each kidney, largest on the right measures 2.2 cm. Largest on the left measures 2.8 cm. No apparent solid mass or shadowing calculus. There is mild cortical thinning on the left. Urinary bladder is collapsed and not well evaluated. There is possible diffuse bladder wall thickening. IMPRESSION: 1. No acute sonographic abnormality. No evidence of hydronephrosis. 2. Bilateral renal cysts. 3. Possible mild wall thickening of the urinary bladder. Consider acute or chronic cystitis. Electronically signed by: Darren Daugherty MD (03/17/2018 4:23 PM) [facility] [place]
--- NOTE | 2018-03-17 16:28 | RAD ---
Testicular ultrasound dated 03/16/2018. No comparison available. CLINICAL INDICATION: Pain. FINDINGS: Right testicle measures 4.1 x 2.4 x 1.3 cm. Left testicle measures 2.9 x 2.3 x 1.0 cm. No focal testicular mass. There is normal color flow and waveforms to both testicles. The left testicle is somewhat mobile and migrates toward the abdomen during the exam. Small epididymal head cyst on the left measuring 7 mm. Small epididymal head cyst on the right measuring 2 mm. Epididymides are otherwise unremarkable. No significant hydrocele or varicocele. IMPRESSION: 1. The left testicle is somewhat mobile and migrates into the inguinal canal during the exam. 2. Otherwise no significant abnormality. Electronically signed by: Darren Daugherty MD (03/17/2018 4:24 PM) [facility] [place]
== END | disposition home or self-care (01) ==
LOC: US 13:21
PROVIDERS: ATTEND Psychiatry & Neurology Neurology
DX: N28.1 Cyst of kidney, acquired (principal)
CPT/HCPCS: 76770; 76870

== ENCOUNTER → 2020-01-31 | Outpatient (CLI) | payer MEDICARE, OTHER ==
[~2020-01-31] MED LIST changes: +AMLO-187 PO; -AMLO10TA6 PO; +LISI2.5T PO; +SIMV10TA15 PO; -SIMV10TA3 PO
[2020-02-04 11:26] VITALS: BP 124/87
== END ==
LOC: LAB 09:00
PROVIDERS: ATTEND Nurse Anesthetist, Certified Registered
DX: Z01.812 Encounter for preprocedural laboratory examination (principal); H26.8 Other specified cataract; Z20.828 Contact with and (suspected) exposure to other viral communicable diseases
CPT/HCPCS: C9803; U0003

== ENCOUNTER → 2020-02-04 | Day surgery (SDC) | payer MEDICARE, OTHER ==
[~2020-02-04] MED LIST changes: +BALANCED SALT IRRIG OPHTH SOLN 15 ML BOTTLE. IRR ONE; +BALANCED SALT IRRIG OPHTH SOLN 15 ML BOTTLE. ONE; +CATARACT OPHTH GEL 0.5 ML SYRINGE. OS ONE; +CHONDROIT-SOD-HYALURONATE KIT. OS ONE; +EPINEPHrine AMPULE 0.5 MG in BALANCED SALT IRRIG SOLN PLUS 500 ML IO ONE; +ERYTHROMYCIN 0.5% OPHTH OINTMENT 1GM TUBE. OS ONE; +HYALURONIDASE 75UNITS in LIDOCAINE 2% PF OPHTH 10 ML SYRINGE. ONE; +HYALURONIDASE 75UNITS in LIDOCAINE 2% PF OPHTH 10 ML SYRINGE. OS ONE; +IPRATRPIUM/ALBUTEROL 0.5/2.5MG 3 ML NEBU. NEB PRN; +IV RINGERS SOLUTION,LACTATED 1,000 ML IV SCH; +KETOROLAC TROMETHAMINE 0.5% OPHTH SOLUTION BOTTLE. ONE; +KETOROLAC TROMETHAMINE 0.5% OPHTH SOLUTION BOTTLE. OS SCH; +LIDO/EPI IN BSS OPHTH 4 ML SYRINGE OS ONE; +MIDAZOLAM HCL PF 2 MG/2 ML VIAL. IV ONE; +MOXIFLOXACIN 0.5% OPHTH SOLUTION 3ML BOTTLE. OS SCH; +ONDANSETRON PF 4 MG/2 ML VIAL. IV PRN; +POVIDONE-IODINE 5% OPHTH SOLUTION 30ML BOTTLE. ONE; +POVIDONE-IODINE 5% OPHTH SOLUTION 30ML BOTTLE. OS ONE; +PROPOFOL 10,000 MCG/ML (20ML) VIAL IV ONE; +TETRACAINE 0.5% OPHTH SOLUTION 4ML BOTTLE. OS ONE; +TETRACAINE 0.5% OPHTH SOLUTION 4ML BOTTLE. OU ONE; +prednisoLONE ACETATE 1% OPHTH SUSPENSION 5ML BOTTLE. ONE; +prednisoLONE ACETATE 1% OPHTH SUSPENSION 5ML BOTTLE. OS SCH
[2020-02-04] MEDS: MOXIFLOXACIN 0.5% OPHTH SOLUTION 3ML BOTTLE. OS SCH ×3 (10:31→10:42)
--- NOTE | 2020-02-04 11:22 | PDOC4 ---
Phaco/IFIS w/o Ring/OS Date of Procedure: Feb 04, 2020 Preoperative Diagnosis: 1. Senile Cataract, Left Eye 2. Anticipated Intraoperative Floppy Iris Syndrome Posoperative Diagnosis: 1. Senile Cataract, Left Eye 2. Intraoperative Floppy Iris Syndrome Anesthesia: Local (Block) with monitored anesthesia care Surgeon: Payam Barboza D.O. Procedure: Procdeure: Left Phacoemulsification with Intraocular Lens Implant Findings: Senile Cataract Intraoperative Floppy Iris Syndrome Indications: Worsening vision interfering with patient's lifestyle Narrative: After discussing the risks, complications and alternatives, including but not limited to loss of vision, infection, bleeding, swelling, anesthetic reaction, capsule rupture with vitreous loss, etc., the patient was given a peribulbar block under mild IV sedation and cardiac monitoring. Pressure was applied to the eye for approximately 10 minutes. The patient was transferred to the main operating room and was prepped and draped in the usual sterile fashion and positioned under the microscope. A lid speculum was placed. A temporal clear corneal incision was made with a keratome and epi-Shugarcaine was injected into the anterior chamber, this was followed by injecting viscoelastic. A side port incision was made. A continuous tear capsulorrhexis was performed, then hydrodissection was accomplished with balanced salt solution. The phacoemulsification needle was placed in the eye and the nucleus was emulsified. The remaining cortical material was removed with the irrigation and aspiration apparatus. The capsule was polished as needed. The posterior capsule was noted to be clean and intact. Viscoelastic was injected into the eye inflating the capsular bag. An intraocular lens was injected into the eye, unfolding as desired and was positioned in the capsular bag. The viscoelastic was aspirated from the eye. The wound edges were hydrated with balanced salt solution and there were no leaks. Viscoelastic was injected over the limbal incisions. Antibiotic and steroid were placed on the eye. The lid speculum was removed, the eye patched shut and a Valentino shield applied. There were no complications and the patient was taken to the PACU in good condition. PAYAM BARBOZA DO Feb 04, 2020 11:22
[2020-02-04 11:26] VITALS: BP 124/87
== END ==
LOC: SURG 09:22
PROVIDERS: ATTEND Ophthalmology
DX: H21.81 Floppy iris syndrome (principal); H25.89 Other age-related cataract; I13.0 Hypertensive heart and chronic kidney disease with heart failure and stage 1 through stage 4 chronic kidney disease, or unspecified chronic kidney disease; I50.9 Heart failure, unspecified; N18.9 Chronic kidney disease, unspecified; F17.210 Nicotine dependence, cigarettes, uncomplicated; Z88.8 Allergy status to other drugs, medicaments and biological substances; Z79.899 Other long term (current) drug therapy
CPT/HCPCS: 66982; 82947; J0171; J2704; V2632

== ENCOUNTER → 2020-02-21 | Outpatient (CLI) | payer MEDICARE, OTHER ==
[2020-02-04 11:26] VITALS: BP 124/87
[~2020-02-21] MED LIST changes: -BALANCED SALT IRRIG OPHTH SOLN 15 ML BOTTLE. IRR ONE; -BALANCED SALT IRRIG OPHTH SOLN 15 ML BOTTLE. ONE; -CATARACT OPHTH GEL 0.5 ML SYRINGE. OS ONE; -CHONDROIT-SOD-HYALURONATE KIT. OS ONE; -EPINEPHrine AMPULE 0.5 MG in BALANCED SALT IRRIG SOLN PLUS 500 ML IO ONE; -ERYTHROMYCIN 0.5% OPHTH OINTMENT 1GM TUBE. OS ONE; -HYALURONIDASE 75UNITS in LIDOCAINE 2% PF OPHTH 10 ML SYRINGE. ONE; -HYALURONIDASE 75UNITS in LIDOCAINE 2% PF OPHTH 10 ML SYRINGE. OS ONE; -IPRATRPIUM/ALBUTEROL 0.5/2.5MG 3 ML NEBU. NEB PRN; -IV RINGERS SOLUTION,LACTATED 1,000 ML IV SCH; -KETOROLAC TROMETHAMINE 0.5% OPHTH SOLUTION BOTTLE. ONE; -KETOROLAC TROMETHAMINE 0.5% OPHTH SOLUTION BOTTLE. OS SCH; -LIDO/EPI IN BSS OPHTH 4 ML SYRINGE OS ONE; -MIDAZOLAM HCL PF 2 MG/2 ML VIAL. IV ONE; -MOXIFLOXACIN 0.5% OPHTH SOLUTION 3ML BOTTLE. OS SCH; -ONDANSETRON PF 4 MG/2 ML VIAL. IV PRN; -POVIDONE-IODINE 5% OPHTH SOLUTION 30ML BOTTLE. ONE; -POVIDONE-IODINE 5% OPHTH SOLUTION 30ML BOTTLE. OS ONE; -PROPOFOL 10,000 MCG/ML (20ML) VIAL IV ONE; -TETRACAINE 0.5% OPHTH SOLUTION 4ML BOTTLE. OS ONE; -TETRACAINE 0.5% OPHTH SOLUTION 4ML BOTTLE. OU ONE; -prednisoLONE ACETATE 1% OPHTH SUSPENSION 5ML BOTTLE. ONE; -prednisoLONE ACETATE 1% OPHTH SUSPENSION 5ML BOTTLE. OS SCH
== END ==
LOC: LAB 10:15
PROVIDERS: ATTEND Nurse Anesthetist, Certified Registered
DX: Z01.818 Encounter for other preprocedural examination (principal); H26.9 Unspecified cataract; Z20.828 Contact with and (suspected) exposure to other viral communicable diseases
CPT/HCPCS: U0003

== ENCOUNTER → 2020-02-25 | Day surgery (SDC) | payer MEDICARE, OTHER ==
[~2020-02-25] MED LIST changes: +BALANCED SALT IRRIG OPHTH SOLN 15 ML BOTTLE. IRR ONE; +CATARACT OPHTH GEL 0.5 ML SYRINGE. OD ONE; +CHONDROIT-SOD-HYALURONATE KIT. OD ONE; +EPINEPHrine AMPULE 0.5 MG in BALANCED SALT IRRIG SOLN PLUS 500 ML IO ONE; +ERYTHROMYCIN 0.5% OPHTH OINTMENT 1GM TUBE. OD ONE; +HYALURONIDASE 75UNITS in LIDOCAINE 2% PF OPHTH 10 ML SYRINGE. OD ONE; +IPRATRPIUM/ALBUTEROL 0.5/2.5MG 3 ML NEBU. NEB PRN; +IV RINGERS SOLUTION,LACTATED 1,000 ML IV SCH; +KETOROLAC TROMETHAMINE 0.5% OPHTH SOLUTION BOTTLE. OD SCH; +LIDO/EPI IN BSS OPHTH 4 ML SYRINGE. OD ONE; +MIDAZOLAM HCL PF 2 MG/2 ML VIAL. IV ONE; +MOXIFLOXACIN 0.5% OPHTH SOLUTION 3ML BOTTLE. OD SCH; +ONDANSETRON PF 4 MG/2 ML VIAL. IV PRN; +POVIDONE-IODINE 5% OPHTH SOLUTION 30ML BOTTLE. OD ONE; +TETRACAINE 0.5% OPHTH SOLUTION 4ML BOTTLE. OD ONE; +TETRACAINE 0.5% OPHTH SOLUTION 4ML BOTTLE. OU ONE; +prednisoLONE ACETATE 1% OPHTH SUSPENSION 5ML BOTTLE. OD SCH
[2020-02-25] MEDS: MOXIFLOXACIN 0.5% OPHTH SOLUTION 3ML BOTTLE. OD SCH ×3 (09:55→10:04)
--- NOTE | 2020-02-25 10:46 | PDOC4 ---
Phaco IOL/IFIS w/o Ring/OD Date of Procedure: Feb 25, 2020 Preoperative Diagnosis: 1. Senile Cataract, Right Eye 2. Anticipated Intraoperative Floppy Iris Syndrome Postoperative Diagnosis: 1. Senile Cataract, Right Eye 2. Intraoperative Floppy Iris Syndrome Anesthesia: Local (Block) with monitored anesthesia care Surgeon: Payam Barboza D.O. Procedure: Procdeure: Right Phacoemulsification with intraocular lens implant Findings: Senile Cataract Intraoperative Floppy Iris Syndrome Indications: Worsening vision interfering with patient's lifestyle Narrative: After discussing the risks, complications and alternatives, including but not limited to loss of vision, infection, bleeding, swelling, anesthetic reaction, capsule rupture with vitreous loss, etc., the patient was given a peribulbar block under mild IV sedation and cardiac monitoring. Pressure was applied to the eye for approximately 10 minutes. The patient was transferred to the main operating room and was prepped and draped in the usual sterile fashion and positioned under the microscope. A lid speculum was placed. A temporal clear corneal incision was made with a keratome and epi-Shugarcaine was injected into the anterior chamber, this was followed by injecting viscoelastic. A side port incision was made. A continuous tear capsulorrhexis was performed, then hydrodissection was accomplished with balanced salt solution. The phacoemulsification needle was placed in the eye and the nucleus was emulsified. The remaining cortical material was removed with the irrigation and aspiration apparatus. The capsule was polished as needed. The posterior capsule was noted to be clean and intact. Viscoelastic was injected into the eye inflating the capsular bag. An intraocular lens was injected into the eye, unfolding as ana ired and was positioned in the capsular bag. The viscoelastic was aspirated from the eye. The wound edges were hydrated with balanced salt solution and there were no leaks. Viscoelastic was injected over the limbal incisions. Antibiotic and steroid were placed on the eye. The lid speculum was removed, the eye patched shut and a Valentino shield applied. There were no compilations and the patient was taken to the PACU in good condition. PAYAM BARBOZA DO Feb 25, 2020 10:46
[2020-02-25 10:48] VITALS: BP 153/87
== END | disposition home or self-care (01) ==
LOC: SURG 09:07
PROVIDERS: ATTEND Ophthalmology
DX: E11.36 Type 2 diabetes mellitus with diabetic cataract (principal); H25.11 Age-related nuclear cataract, right eye; I10 Essential (primary) hypertension; H21.81 Floppy iris syndrome; I13.2 Hypertensive heart and chronic kidney disease with heart failure and with stage 5 chronic kidney disease, or end stage renal disease; E11.22 Type 2 diabetes mellitus with diabetic chronic kidney disease; I50.9 Heart failure, unspecified; N18.6 End stage renal disease; G47.30 Sleep apnea, unspecified; F17.210 Nicotine dependence, cigarettes, uncomplicated; Z98.890 Other specified postprocedural states; Z99.2 Dependence on renal dialysis; Z85.828 Personal history of other malignant neoplasm of skin; Z83.3 Family history of diabetes mellitus; Z79.899 Other long term (current) drug therapy; Z79.4 Long term (current) use of insulin; Z91.040 Latex allergy status; Z88.8 Allergy status to other drugs, medicaments and biological substances; Z91.048 Other nonmedicinal substance allergy status; Z82.3 Family history of stroke; Z80.9 Family history of malignant neoplasm, unspecified
CPT/HCPCS: 66984; 82947; J0171; V2632

== ENCOUNTER → 2020-03-04 | Outpatient (CLI) | payer MEDICARE, OTHER ==
[2020-02-25 10:48] VITALS: BP 153/87
[~2020-03-04] MED LIST changes: -BALANCED SALT IRRIG OPHTH SOLN 15 ML BOTTLE. IRR ONE; -CATARACT OPHTH GEL 0.5 ML SYRINGE. OD ONE; -CHONDROIT-SOD-HYALURONATE KIT. OD ONE; -EPINEPHrine AMPULE 0.5 MG in BALANCED SALT IRRIG SOLN PLUS 500 ML IO ONE; -ERYTHROMYCIN 0.5% OPHTH OINTMENT 1GM TUBE. OD ONE; -HYALURONIDASE 75UNITS in LIDOCAINE 2% PF OPHTH 10 ML SYRINGE. OD ONE; -IPRATRPIUM/ALBUTEROL 0.5/2.5MG 3 ML NEBU. NEB PRN; -IV RINGERS SOLUTION,LACTATED 1,000 ML IV SCH; -KETOROLAC TROMETHAMINE 0.5% OPHTH SOLUTION BOTTLE. OD SCH; -LIDO/EPI IN BSS OPHTH 4 ML SYRINGE. OD ONE; -MIDAZOLAM HCL PF 2 MG/2 ML VIAL. IV ONE; -MOXIFLOXACIN 0.5% OPHTH SOLUTION 3ML BOTTLE. OD SCH; -ONDANSETRON PF 4 MG/2 ML VIAL. IV PRN; -POVIDONE-IODINE 5% OPHTH SOLUTION 30ML BOTTLE. OD ONE; -TETRACAINE 0.5% OPHTH SOLUTION 4ML BOTTLE. OD ONE; -TETRACAINE 0.5% OPHTH SOLUTION 4ML BOTTLE. OU ONE; -prednisoLONE ACETATE 1% OPHTH SUSPENSION 5ML BOTTLE. OD SCH
--- NOTE | 2020-03-04 14:09 | RAD ---
EXAM: CT Abdomen and Pelvis without IV contrast CLINICAL HISTORY: HERNIA ABDOMINAL WALL LEAK, PAIN IN GROIN COMPARISON: 03/04/2020 03/14/2018 TECHNIQUE: Helical CT of the abdomen and pelvis was performed without the administration of IV contrast. Axial, coronal and sagittal reformatted images were generated. ---PQRS compliance statement - One or more of the following individualized dose reduction techniques were utilized for this study: 1. Automated exposure control 2. Adjustment of the mA and/or kV according to patient size 3. Use of iterative reconstruction technique--- FINDINGS: Lack of intravenous contrast limits evaluation of solid organs, vasculature, and lymph nodes. Lower chest: Trace right pleural effusion. Linear and bandlike opacities lower lobes likely scarring/atelectasis. Calcified granuloma are seen bilaterally. Mitral annular and aortic root dense calcifications are seen. No pericardial effusion. Abdomen and pelvis: No focal liver lesion. Gallbladder is normal. No biliary duct dilatation. Pancreas is unremarkable. Spleen is normal in appearance. Adrenal glands are unremarkable. Bilateral renal cysts are seen. The kidneys are atrophic bilaterally. Bladder wall thickening likely cystitis. Moderate to large volume colonic stool content is seen. Colonic diverticula are seen. No evidence for acute diverticulitis. Abdominal and pelvic ascites. Peritoneal dialysis catheter is seen in the left lower quadrant. There is peritoneal enhancement dependently suggesting peritonitis. No discrete loculated collection is identified. Aorta is normal in caliber. A few mildly prominent retroperitoneal and pelvic lymph nodes are likely reactive however no definite lymphadenopathy by size criteria. Trace fat-containing periumbilical hernia is seen. No definite inguinal hernia is identified. Several inguinal lymph nodes are seen bilaterally which although are prominent, contain fatty raffy. Prostate measures 6.8 cm in transverse dimension. Bones: Rightward curvature of the lumbar spine apex L2. Left hip joint osteoarthritis. Prior left hip acetabular screw fixation changes are seen. Degenerative changes of the spine are noted. Otherwise no aggressive osseous lesion. IMPRESSION: 1. Abdominal and pelvic ascites with peritoneal dialysis catheter in the left lower quadrant. No discrete loculated fluid collection is seen however there is peritoneal enhancement dependently suggesting peritonitis. 2. Prominent inguinal lymph nodes bilaterally may be reactive containing fatty raffy. 3. Trace fat-containing periumbilical hernia. No significant inguinal hernia. 4. Mild bladder wall thickening may be reactive or related to cystitis. Electronically signed by: Jacky Bedolla MD (03/04/2020 2:07 PM) [id number]
== END ==
LOC: CT 10:22
PROVIDERS: ATTEND Internal Medicine Nephrology
DX: K43.9 Ventral hernia without obstruction or gangrene (principal); N28.1 Cyst of kidney, acquired; N26.1 Atrophy of kidney (terminal); K57.30 Diverticulosis of large intestine without perforation or abscess without bleeding; K42.9 Umbilical hernia without obstruction or gangrene
CPT/HCPCS: 74176

== ENCOUNTER 2020-03-12 00:59 | Inpatient (IN) | payer MEDICARE, OTHER ==
[~2020-03-12] VITALS: Ht 195.6 cm; Wt 120.0 kg
--- NOTE | 2020-03-12 01:27 | PHYS DOC ---
Past History Past Medical History: Diabetes, Hypertension, Renal Disease, Other Additional Past Medical Histor: Peritoneal dialysis Past Surgical History: Hip Replacement, Other Additional Past Surgical Histo: Peritoneal dialysis catheter Alcohol Use: None Drug Use: None General Adult EDM: Chief Complaint: ABDOMINAL PAIN HPI: HPI: 60-year-old male presents via private vehicle with report of lower abdominal discomfort. Patient reports history of peritoneal dialysis and was performing dialysis at home when pain started. Denies cough, shortness of breath, chest pain, or any nasal congestion. Denies any fever or chills. Denies trauma. Patient reports he feels generally weak. Reports was seen by Dr. Paulino adventure therapist 1 week ago and underwent imaging due to similar pain that was lower abdomen and groin. Review of Systems: Review of Systems: Constitutional: Denies fever or chills Eyes: Denies redness or eye pain HENT: Denies nasal congestion or sore throat Respiratory: Denies cough or shortness of breath Cardiovascular: Denies chest pain or palpitations GI: Reports abdominal pain, nausea, and vomiting Musculoskeletal: Denies back pain or joint pain Integument: Denies rash or skin lesions Neurologic: Denies headache, focal weakness or sensory changes; reports generalized weakness Complete systems were reviewed and found to be within normal limits, except as documented in this note. Current Medications: Current Meds: Current Medications Medications (Trade) Dose Ordered Sig/Lizet Start Time Stop Time Status Last Admin Dose Admin Famotidine (Pepcid Vial) 20 mg 1X ONCE 03/12/20 01:30 03/12/20 01:31 Fentanyl Citrate (Fentanyl 2ml Vial) 50 mcg 1X ONCE 03/12/20 01:30 03/12/20 01:31 Info (Do NOT chart on this entry -- for MONITORING) 1 each PRN DAILY PRN 03/12/20 01:30 03/14/20 01:29 Iohexol (Omnipaque 240 Mg/ml) 30 ml 1X ONCE 03/12/20 01:30 03/12/20 01:31 Ondansetron HCl (Zofran) 4 mg 1X ONCE 03/12/20 01:30 03/12/20 01:31 Sodium Chloride 500 ml @ 500 mls/hr 1X ONCE 03/12/20 01:30 03/12/20 02:29 Allergies: Allergies: Allergies Coded Allergies Type Severity Reaction Last Updated Verified adhesive Allergy Intermediate 12/22/16 Yes latex Allergy Intermediate 12/22/16 Yes Physical Exam: PE: Constitutional: Well developed, well nourished, no acute distress, non-toxic appearance HENT: Normocephalic, atraumatic Eyes: PERRL, EOMI, conjunctiva normal, no discharge Neck: Normal range of motion, no tenderness, supple Lungs & Thorax: No respiratory distress, equal chest rise and fall Abdomen: Soft, diffuse tenderness, distention Skin: Warm, dry, no erythema, no rash Back: No tenderness, no CVA tenderness Extremities: No tenderness, ROM intact, no edema Neurologic: Alert and oriented X 3, normal motor function, normal sensory function, no focal deficits noted Psychologic: Affect normal, judgment normal EKG: EKG: @0123 Sinus tachycardia at 122bpm, NO ST elevation, QRS 96, QT/QTc 296/423ms Radiology/Procedures: Radiology/Procedures: PROCEDURE: CT ABD PEL W/ORAL CONTRST ONLY CT ABD PEL W/ORAL CONTRST ONLY INDICATION: Reason: diffuse abdominal pain, constipation, hx of peritoneal dialysis / Spl. Instructions: / History: EXAM: Noncontrast CT of the abdomen and pelvis. Coronal and sagittal reformatted images were performed. PQRS compliance statement: One or more of the following individualized dose reduction techniques were utilized for this examination: 1. Automated exposure control 2. Adjustment of the mA and/or kV according to patient size 3. Use of iterative reconstruction technique COMPARISON: 03/04/2020 FINDINGS: Moderate to large volume abdominopelvic ascites, increased from the prior. Peritoneal dialysis catheter in place. Lower chest: The visualized lower lungs are aerated. Trace right pleural effusion. ABDOMEN: Liver: The noncontrast liver is homogeneous in attenuation. Gallbladder and biliary: Normal gallbladder without radiopaque stone. Normal caliber bile ducts. Spleen: Enlarged spleen measures 16.9 cm in length Pancreas: The noncontrast pancreas is homogeneous in attenuation without peripancreatic inflammatory changes. Adrenal glands: Normal adrenal glands. Kidneys and ureters: Bilateral renal atrophy. Moderate left hydronephrosis. No opaque urinary calculi seen. GI tract: Normal stomach. Normal caliber small bowel and colon. Colonic diverticulosis. Normal appendix. Vascular structures: Normal caliber abdominal aorta.. Mild aortoiliac atherosclerotic disease Lymph nodes: No lymphadenopathy in the abdomen or pelvis. PELVIS: Genitourinary system: Normal bladder. SKELETAL STRUCTURES AND SOFT TISSUES: Degenerative changes of the spine. IMPRESSION: 1. Moderate to large volume abdominal pelvic ascites, increased from exam of 03/04/2020. Peritoneal dialysis catheter in place. 2. Moderate left hydronephrosis. No opaque urinary calculi are seen. 3. Colonic diverticulosis without evidence of acute diverticulitis. Electronically signed by: Jv Schofield MD (03/12/2020 2:56 AM) [facility] PROCEDURE: CHEST AP ONLY CHEST AP ONLY INDICATION: Reason: hypoxia,. weakness / Spl. Instructions: / History: . COMPARISON STUDY: None. FINDINGS: Lungs: Low lung volume. Mild bibasilar opacities. The tracheobronchial tree and hilar structures are normal. Pleura: No pleural effusion or pneumothorax. Heart and Mediastinum: The cardiomediastinal silhouette is normal. The great vessels of the thorax are normal. IMPRESSION: Low lung volume with mild bibasilar opacities, probably subsegmental atelectasis. Electronically signed by: Jv Schofield MD (03/12/2020 4:33 AM) [facility] Course & Med Decision Making: Course & Med Decision Making Pertinent Labs and Imaging studies reviewed. (See chart for details) Patient presents via private vehicle with report of lower abdominal discomfort with history of end-stage renal disease on peritoneal dialysis. Patient denies any chest pain, shortness of air, cough, or fever/chills. Patient does report some generalized weakness and fatigue. Patient with abdominal distention on exam. Afebrile. Pain addressed. Labs obtained and posted to chart. WBC and lactic acid within normal limits. Troponin also within normal limits. EKG stable. CT abdomen/pelvis without significant abnormality. CT does note some increased fluid from peritoneal dialysis. Patient noted to drop his sats down to the high 80s. Unclear if secondary to administration of fentanyl combined with patient's sleep apnea. Patient reports he is supposed to be wearing a CPAP but cannot tolerate the machine. Chest x-ray without acute process. Cannot fully exclude COVID-19. COVID-19 testing pending. COVID-[address] Patient requiring admission for further evaluation and treatment. Discussed with Dr. Casillas (hospitalist) who is in agreement with admission. Discussed findings and plan with patient, who acknowledges understanding and agreement. COVID-19 CRITERIA: The patient was evaluated during the global COVID-19 pandemic, and that diagnosis was suspected/considered upon their initial presentation. Their evaluation, treatment and testing was consistent with current guidelines for patients who present with complaints or symptoms that may be related to COVID-19. Dragon Disclaimer: Dragon Disclaimer: This electronic medical record was generated, in whole or in part, using a voice recognition dictation system. Departure Departure: Impression: Primary Impression: Abdominal pain Qualified Codes: R10.30 - Lower abdominal pain, unspecified Additional Impressions: Peritoneal dialysis status Hypoxia End stage renal disease Weakness Disposition: ADMITTED INPT THIS HOSP Admitting Physician: Raúl Casillas Condition: STABLE Referrals: RAÚL CASILLAS MD (PCP) COVID-19 Assessment COVID-19 Patient Risks: Age 65 or older: No Sign of co-morbidity: Yes Exp to person + for COVID: No Exp to PUI: No Travel from affected area: No Lower respiratory symptoms: No Fever: No Other: Yes (weakness/fatigue) PPE Use: Full PPE with N95 mask or PAPR: Yes Critical Care Time Critical care time was 30 minutes which includes time at bedside, spent in discussion of patient's care with specialists and/or family members, with interpretation of laboratory and/or radiological studies and is exclusive of procedures. RAY YUAN DO Mar 12, 2020 01:27
--- NOTE | 2020-03-12 01:28 | EKG ---
[address] [address] Test Date: 2020-03-12 Test Time: 01:23:48 Pat Name: LOY KLEIN Department: Room: Gender: M [employer] Assistant: : 1960 Requested By: RAY YUAN Order Number: [id number] Reading MD: Measurements Intervals [place] Rate: 122 P: 24 TN: 154 QRS: 12 QRSD: 96 T: 36 QT: 296 QTc: 423 Interpretive Statements SINUS TACHYCARDIA OTHERWISE NORMAL ECG RI6.02 No previous ECG available for comparison
[2020-03-12] MEDS ORDERED: FAMOTIDINE 20 MG/2 ML VIAL IVP ONE (01:30)
[2020-03-12] MEDS ORDERED: IV NORMAL SALINE 500ML 500 ML IV ONE (01:30)
[2020-03-12] MEDS ORDERED: ONDANSETRON PF 4 MG/2 ML VIAL. IVP ONE (01:30)
[2020-03-12] MEDS ORDERED: IOHEXOL 240 MG/ML 50ML VIAL. PO ONE (01:30)
[2020-03-12] MEDS ORDERED: CONTRAST GIVEN. MC PRN (01:30)
[2020-03-12 01:51] LABS: BASO # 0.1 x10^3/uL (0.0-0.2); BASO % 1 % (0-3); EOS # 0.2 x10^3/uL (0.0-0.7); EOS % 3 % (0-3); HEMATOCRIT 41.4 % (39.0-53.0); HEMOGLOBIN 13.4 g/dL (13.0-17.5); LYMPH # 0.8 x10^3/uL (1.0-4.8); LYMPH % 14 % (24-48); MEAN CORPUSCULAR HEMOGLOBIN 30 pg (25-35); MEAN CORPUSCULAR HGB CONC 32 g/dL (31-37); MEAN CORPUSCULAR VOLUME 92 fL (79-100); MONO # 0.6 x10^3/uL (0.0-1.1); MONO % 11 % (0-9); NEUT # 3.7 x10^3uL (1.8-7.7); NEUT % 70 % (31-73); PLATELET COUNT 325 x10^3/uL (140-400); RED BLOOD COUNT 4.49 x10^6/uL (4.30-5.70); RED CELL DISTRIBUTION WIDTH 13.4 % (11.5-14.5); WHITE BLOOD COUNT 5.3 x10^3/uL (4.0-11.0)
[2020-03-12 02:13] LABS: CALCIUM 8.3 mg/dL (8.5-10.1); CREATININE 8.6 mg/dL (0.7-1.3); GFR 6.4; POTASSIUM 3.6 mmol/L (3.5-5.1)
[2020-03-12 02:32] LABS: ALBUMIN 1.5 g/dL (3.4-5.0); ALBUMIN/GLOBULIN RATIO 0.3 (1.0-1.7); MAGNESIUM 1.8 mg/dL (1.8-2.4); TOTAL BILIRUBIN 0.2 mg/dL (0.2-1.0); TOTAL PROTEIN 6.1 g/dL (6.4-8.2)
--- NOTE | 2020-03-12 03:00 | RAD ---
CT ABD PEL W/ORAL CONTRST ONLY INDICATION: Reason: diffuse abdominal pain, constipation, hx of peritoneal dialysis / Spl. Instructions: / History: EXAM: Noncontrast CT of the abdomen and pelvis. Coronal and sagittal reformatted images were performed. PQRS compliance statement: One or more of the following individualized dose reduction techniques were utilized for this examination: 1. Automated exposure control 2. Adjustment of the mA and/or kV according to patient size 3. Use of iterative reconstruction technique COMPARISON: 03/04/2020 FINDINGS: Moderate to large volume abdominopelvic ascites, increased from the prior. Peritoneal dialysis catheter in place. Lower chest: The visualized lower lungs are aerated. Trace right pleural effusion. ABDOMEN: Liver: The noncontrast liver is homogeneous in attenuation. Gallbladder and biliary: Normal gallbladder without radiopaque stone. Normal caliber bile ducts. Spleen: Enlarged spleen measures 16.9 cm in length Pancreas: The noncontrast pancreas is homogeneous in attenuation without peripancreatic inflammatory changes. Adrenal glands: Normal adrenal glands. Kidneys and ureters: Bilateral renal atrophy. Moderate left hydronephrosis. No opaque urinary calculi seen. GI tract: Normal stomach. Normal caliber small bowel and colon. Colonic diverticulosis. Normal appendix. Vascular structures: Normal caliber abdominal aorta.. Mild aortoiliac atherosclerotic disease Lymph nodes: No lymphadenopathy in the abdomen or pelvis. PELVIS: Genitourinary system: Normal bladder. SKELETAL STRUCTURES AND SOFT TISSUES: Degenerative changes of the spine. IMPRESSION: 1. Moderate to large volume abdominal pelvic ascites, increased from exam of 03/04/2020. Peritoneal dialysis catheter in place. 2. Moderate left hydronephrosis. No opaque urinary calculi are seen. 3. Colonic diverticulosis without evidence of acute diverticulitis. Electronically signed by: Jv Schofield MD (03/12/2020 2:56 AM) [facility]
[2020-03-12] MEDS ORDERED: HYDR-3165 PO (04:00)
[2020-03-12] MEDS ORDERED: ONDANSETRON PF 4 MG/2 ML VIAL. IVP PRN (04:30)
[2020-03-12] MEDS ORDERED: DEXTROSE 50% 25 GM / 50ML DISP.SYRIN. IV PRN (04:30)
--- NOTE | 2020-03-12 04:36 | RAD ---
CHEST AP ONLY INDICATION: Reason: hypoxia,. weakness / Spl. Instructions: / History: . COMPARISON STUDY: None. FINDINGS: Lungs: Low lung volume. Mild bibasilar opacities. The tracheobronchial tree and hilar structures are normal. Pleura: No pleural effusion or pneumothorax. Heart and Mediastinum: The cardiomediastinal silhouette is normal. The great vessels of the thorax are normal. IMPRESSION: Low lung volume with mild bibasilar opacities, probably subsegmental atelectasis. Electronically signed by: Jv Schofield MD (03/12/2020 4:33 AM) [facility]
--- NOTE | 2020-03-12 05:35 | NUR ---
Admission Note: Pt transported via EMS from ED to ICU room 3, pt moved from cart to bed with two person assist, VSS, no c/o n/v, pt continues to c/o abdominal pain 9:10 (fentanyl just given in ED prior to arrival), pt does not know his home medications (staff will need to contact Gena in am for current home med list), pt oriented to room/call light/ hospital routines, will continue to monitor.
[2020-03-12 05:58] VITALS: BP 107/65
[2020-03-12] MEDS: INSULIN LISPRO 300 UNITS/3 ML VIAL. SQ SCH ×3 (08:00→17:00)
[2020-03-12] MEDS ORDERED: POLYETHYLENE GLYCOL 3350 17 GM PACKET. PO PRN (08:30)
[2020-03-12] MEDS ORDERED: NON FORMULARY ITEM (Lisinopril 1 TAB) PO SCH (09:00)
[2020-03-12] MEDS ORDERED: PHENobarbital 32.4 MG TABLET. PO SCH (09:00)
[2020-03-12] MEDS: SEVELAMER CARBONATE 800 MG TABLET. PO SCH ×2 (09:00→14:00)
[2020-03-12] MEDS ORDERED: TAMSULOSIN 0.4 MG CAP.ER.24H. PO SCH (09:00)
[2020-03-12] MEDS ORDERED: NON FORMULARY ITEM (Esomeprazole Magnesium (Nexium Capsule) 1 CAP) PO SCH (09:00)
[2020-03-12] MEDS ORDERED: NON FORMULARY ITEM (Liraglutide (Victoza 3-Pak) 1.8 MG) SQ SCH (09:00)
[2020-03-12] MEDS ORDERED: PANTOPRAZOLE 40 MG TABLET. PO SCH (09:50)
[2020-03-12 11:36] VITALS: BP 140/88
[2020-03-12] MEDS: CARVEDILOL 12.5 MG TABLET PO SCH ×2 (12:36→17:48)
[2020-03-12] MEDS ORDERED: amLODIPine BESYLATE 10 MG TABLET PO SCH (12:45)
[2020-03-12] MEDS ORDERED: LISINOPRIL 2.5 MG TABLET PO SCH (13:15)
[2020-03-12] MEDS ORDERED: FENOFIBRATE NANOCRYSTALLIZED 145 MG TABLET PO SCH (13:15)
[2020-03-12] MEDS ORDERED: SPIRONOLACTONE 25 MG TABLET PO SCH (13:15)
[2020-03-12 15:26] VITALS: BP 128/59
[2020-03-12] MEDS ORDERED: SIME125C PO (16:26)
[2020-03-12] MEDS ORDERED: GABA600T7 PO (16:26)
[2020-03-12] MEDS ORDERED: FOLI0.8T33 PO (16:26)
[2020-03-12] MEDS ORDERED: POTA20TA4 PO (16:26)
[2020-03-12] MEDS ORDERED: CARV6.2541 PO (16:26)
[2020-03-12] MEDS ORDERED: FENO145T32 PO (16:26)
[2020-03-12] MEDS ORDERED: SUCR1TAB PO (16:26)
[2020-03-12] MEDS ORDERED: TAMS0.4C97 PO (16:26)
[2020-03-12] MEDS ORDERED: LISI-338 PO (16:26)
[2020-03-12] MEDS ORDERED: ICOS1CAP PO (16:26)
[2020-03-12] MEDS ORDERED: SEVE800T9 PO (16:26)
[2020-03-12] MEDS ORDERED: GLIP5TAB10 PO (16:26)
[2020-03-12] MEDS ORDERED: POLY17PO5 PO (16:26)
[2020-03-12] MEDS ORDERED: INSU100V13 SQ (16:26)
[2020-03-12] MEDS ORDERED: ZOLP5TAB5 PO (16:26)
[2020-03-12] MEDS ORDERED: INSU100I17 SQ ×3 (16:26)
[2020-03-12] MEDS ORDERED: TEST200V3 IM (16:26)
[2020-03-12] MEDS ORDERED: CINA60TA PO (16:26)
[2020-03-12] MEDS ORDERED: SIMV10TA15 PO (16:26)
[2020-03-12] MEDS ORDERED: CALC0.5C8 PO (16:26)
[2020-03-12] MEDS ORDERED: FURO80TA72 PO (16:26)
[2020-03-12] MEDS ORDERED: ESOM40CA PO (16:26)
[2020-03-12] MEDS ORDERED: DOCU-109 PO (16:26)
[2020-03-12 18:26] VITALS: BP 126/72
[2020-03-12 19:29] VITALS: BP 151/95
--- NOTE | 2020-03-12 19:40 | NUR ---
Discharge Note: Pt transported to [facility] room 671 via EMS for higher level of care, pt belongings sent with patient along with chart paperwork, VSS at time of discharge.
[2020-03-12] MEDS ORDERED: SIMVASTATIN 10 MG TABLET PO SCH (21:00)
[2020-03-12] MEDS ORDERED: FUROSEMIDE 80 MG TABLET PO SCH (21:00)
[2020-03-12] MEDS ORDERED: cloNIDine HCL 0.1 MG TABLET PO SCH (21:00)
[2020-03-12] MEDS ORDERED: diphenhydrAMINE HCL 25 MG CAPSULE PO PRN (21:00)
--- NOTE | 2020-03-12 22:30 | HP ---
ADMIT DATE: 03/12/2020 HISTORY OF PRESENT ILLNESS: A 60-year-old gentleman came in through the Emergency Room. Apparently, this patient has chronic kidney failure and is on peritoneal dialysis. The patient came in with severe abdominal pain. CT scan showed the significant amount of ascites which may have indicated a leak in his dialysis apparatus within his abdomen. As a result of his pain and obvious problems with the peritoneal dialysis, the patient was admitted to the hospital for further evaluation. PAST MEDICAL HISTORY: Heart murmur; CHF; hypertension; sleep apnea, does not use CPAP; constipation; BPH, he is on dialysis peritoneal since 2013; anuria; orthopedic surgery, hip repair in 1996, joint replacement; type 2 diabetes, poorly controlled; skin cancer. Tetanus and influenza vaccinations are up-to-date. FAMILY HISTORY: Positive for hypertension. ALLERGIES: ADHESIVES AND LATEX. MEDICATIONS: Home medications are locked. In any case, he takes Benadryl 50 mg a day, Flomax 0.4, TriCor, simvastatin 10, ____ 2 capsules b.i.d., carvedilol 6.25 b.i.d., lisinopril 5, gabapentin 600, Ambien 5, potassium chloride, RenVela 3 tablets p.o. t.i.d., 800 mg each, Lasix 80 mg b.i.d., simethicone, Colace and polyethylene glycol, Carafate, Nexium 40 mg, testosterone cypionate, insulin long-acting as well as short-acting, glipizide, folic acid and vitamin D and calcitriol. SOCIAL HISTORY: Denies smoking, alcohol or drug use. He is a full code. PHYSICAL EXAMINATION: GENERAL: This is a very pleasant white male. VITAL SIGNS: Blood pressure 126/72, respiratory rate 20. The patient's pulse 110. He is afebrile, 2 liters at 98%. HEENT: The patient's head was atraumatic, normocephalic. Eyes: PERRLA without jaundice. Mouth and throat were normal. NECK: Supple, without JVD, carotid bruits nor thyromegaly. LUNGS: Diminished. Poor movement of air, but basically clear. ABDOMEN: Soft. There was diffuse tenderness in fluid waves noted in the patient's abdomen and the patient in turn. EXTREMITIES: No clubbing, cyanosis, +1 pitting edema. NEUROLOGIC: The patient is alert and oriented x 3. LABORATORY DATA: CT scan showed massive ascites in the abdominal area. The patient's white count 5.3, hemoglobin 13, hematocrit 41. Chemistries were basically stable at 136, 3.6, BUN 50 and creatinine 8.6, blood sugar 126. Otherwise, severe protein malnutrition with albumin of only 1.5. Cardiac enzymes were negative. Coags were stable. The patient otherwise continued to be monitored carefully. He was placed on some IV Rocephin along with some of his other medications as indicated and will contact his aircraft electrician for further evaluation and treatment on his cardiac problems as well as Dr. Paulino, who is his plug paster. RAÚL CASILLAS MD DR: WAYNE/ulisses JOB#: [id number] / [id number]
[2020-03-13] MEDS ORDERED: OMEGA-3 FATTY ACIDS/FISH OIL 1,000 MG CAPSULE. PO SCH (09:00)
[2020-03-13] MEDS ORDERED: FOLIC/VIT B COMP W-C (RENAL) TABLET. PO SCH (09:00)
[2020-03-13] MEDS ORDERED: CALCITRIOL 0.25 MCG CAPSULE PO SCH (09:00)
== END 2020-03-12 19:40 | disposition short-term general hospital (02) | DRG 947 ==
LOC: ER 00:59 → ICU 04:23
PROVIDERS: ADMIT Family Medicine; ATTEND Family Medicine
DX: R18.8 Other ascites (principal); N18.6 End stage renal disease; E43 Unspecified severe protein-calorie malnutrition; I13.2 Hypertensive heart and chronic kidney disease with heart failure and with stage 5 chronic kidney disease, or end stage renal disease; I50.9 Heart failure, unspecified; R09.02 Hypoxemia; Z96.649 Presence of unspecified artificial hip joint; G47.30 Sleep apnea, unspecified; N40.0 Benign prostatic hyperplasia without lower urinary tract symptoms; E11.22 Type 2 diabetes mellitus with diabetic chronic kidney disease; Z20.828 Contact with and (suspected) exposure to other viral communicable diseases; Z82.49 Family history of ischemic heart disease and other diseases of the circulatory system; Z99.2 Dependence on renal dialysis; Z88.8 Allergy status to other drugs, medicaments and biological substances; Z91.040 Latex allergy status; Z68.31 Body mass index [BMI] 31.0-31.9, adult
CPT/HCPCS: 36415; 71045; 74176; 80053; 82553; 82947; 83605; 83690; 83735; 84484; 85025; 85610; 85730; 93005; 96361; 96374; 96375; J0696; J2405; J3010; J3490; J7040; Q9966; U0003; 99291-25

== ENCOUNTER 2020-04-02 03:06 | Emergency (ER) | payer MEDICARE, OTHER ==
[~2020-04-02] VITALS: Ht 195.6 cm; Wt 127.3 kg
[~2020-04-02 03:06] MED LIST changes: +CALC0.5C8 PO; +CARV6.2541 PO; +CINA60TA PO; +DOCU-109 PO; +ESOM40CA PO; +FURO80TA72 PO; +GABA600T7 PO; +GLIP5TAB10 PO; +HYDR-3165 PO; +ICOS1CAP PO; +INSU100I17 SQ; +INSU100V13 SQ; +LISI-338 PO; +POTA20TA4 PO; +SIME125C PO; +SUCR1TAB PO; +TAMS0.4C97 PO; +TEST200V3 IM; +ZOLP5TAB5 PO
--- NOTE | 2020-04-02 03:46 | EKG ---
[address] [address] Test Date: 2020-04-02 Test Time: 03:37:19 Pat Name: LOY KLEIN Department: Room: Gender: M Threader: : 1960 Requested By: CHRISTA JACKSON Order Number: [id number] Reading MD: Measurements Intervals [place] Rate: 112 P: 30 AL: 168 QRS: 20 QRSD: 102 T: 43 QT: 318 QTc: 436 Interpretive Statements SINUS TACHYCARDIA LEFT ATRIAL ABNORMALITY QRS(T) CONTOUR ABNORMALITY CONSISTENT WITH SEPTAL INFARCT PROBABLY OLD ABNORMAL ECG RI6.02 No previous ECG available for comparison
--- NOTE | 2020-04-02 03:47 | RAD ---
Single view chest dated 04/02/2020. Comparison made to 03/12/2020. CLINICAL INDICATION: Weakness. FINDINGS: Single upright portable exam performed. Heart and mediastinal contours are stable. There is patchy pe rihilar and bibasilar airspace disease, mildly increased. No consolidation or pleural effusion. No pn eumothorax. IMPRESSION: Mild interval increase in bilateral airspace disease, atelectasis versus pneumonia. Viral pneumonitis not excluded. Electronically signed by: Darren Daugherty MD (04/02/2020 3:45 AM) [facility]
[2020-04-02] MEDS ORDERED: dilTIAZem 25 MG/5 ML VIAL IVP ONE ×2 (04:00→05:00)
[2020-04-02 04:11] LABS: BASO % 0 % (0-3); EOS # 0.2 x10^3/uL (0.0-0.7); EOS % 2 % (0-3); HEMATOCRIT 30.4 % (39.0-53.0); HEMOGLOBIN 9.7 g/dL (13.0-17.5); LYMPH # 0.6 x10^3/uL (1.0-4.8); LYMPH % 7 % (24-48); MEAN CORPUSCULAR HEMOGLOBIN 29 pg (25-35); MEAN CORPUSCULAR HGB CONC 32 g/dL (31-37); MEAN CORPUSCULAR VOLUME 92 fL (79-100); MONO # 0.2 x10^3/uL (0.0-1.1); MONO % 3 % (0-9); NEUT # 7.2 x10^3uL (1.8-7.7); NEUT % 88 % (31-73); PLATELET COUNT 224 x10^3/uL (140-400); RED BLOOD COUNT 3.31 x10^6/uL (4.30-5.70); RED CELL DISTRIBUTION WIDTH 14.7 % (11.5-14.5); WHITE BLOOD COUNT 8.2 x10^3/uL (4.0-11.0)
[2020-04-02 04:18] LABS: CALCIUM 9.1 mg/dL (8.5-10.1); CREATININE 7.2 mg/dL (0.7-1.3); GFR 7.9; POTASSIUM 3.8 mmol/L (3.5-5.1)
[2020-04-02 04:24] LABS: ALBUMIN 1.3 g/dL (3.4-5.0); ALBUMIN/GLOBULIN RATIO 0.3 (1.0-1.7); TOTAL BILIRUBIN 0.3 mg/dL (0.2-1.0); TOTAL PROTEIN 5.2 g/dL (6.4-8.2)
[2020-04-02 04:33] LABS: PLT ESTIMATE ADEQUATE (ADEQUATE)
[2020-04-02] MEDS ORDERED: IV NORMAL SALINE 100ML 100 ML ONE (04:58)
[2020-04-02] MEDS ORDERED: dilTIAZem VIAL 125 MG in IV NORMAL SALINE 100ML 100 ML IV PRN (05:00)
--- NOTE | 2020-04-02 05:52 | PHYS DOC ---
Past History Past Medical History: Arthritis, CHF, Constipation, Diabetes, GERD, High Cholesterol, Hypertension, Renal Failure, Other Additional Past Medical Histor: Obese, Falls, Heart murmur, sleep apnea, BPH, Anuria Past Surgical History: Hip Replacement, Other Additional Past Surgical Histo: Skin CA surgery-Face, part of L foot amput, L hip sx, Dialysis catheter Alcohol Use: None Drug Use: None Adult General Chief Complaint Chief Complaint: WEAKNESS/GENERALIZED HPI HPI Patient is a 60-year-old male who presents to the emergency room complaining of generalized weakness. Patient states that he is typically able to transfer from wheelchair without difficulty however today he fell while trying to transfer. This is atypical for him. He states he generally feels unwell. He has been doing his dialysis per his usual regimen. He denies any fevers or chills. He has not had any other infectious symptoms. Patient does feel palpitations. He denies any chest pain. He does not have any shortness of breath. Review of Systems Review of Systems Complete ROS is negative unless otherwise documented in HPI Current Medications Current Medications Current Medications Medications (Trade) Dose Ordered Sig/Lizet Start Time Stop Time Status Last Admin Dose Admin Diltiazem HCl (Cardizem Iv Push) 10 mg 1X ONCE 04/02/20 05:00 04/02/20 05:03 DC 04/02/20 04:56 10 MG Diltiazem HCl (Cardizem) 125 mg STK-MED ONCE 04/02/20 04:58 04/02/20 04:58 DC Diltiazem HCl 125 mg/Sodium Chloride 125 ml @ 5 mls/hr CONT PRN 04/02/20 05:00 04/02/20 05:07 5 MLS/HR Sodium Chloride 100 ml @ As Directed STK-MED ONCE 04/02/20 04:58 04/02/20 04:58 DC Allergies Allergies Allergies Coded Allergies Type Severity Reaction Last Updated Verified adhesive Allergy Intermediate 12/22/16 Yes latex Allergy Intermediate 12/22/16 Yes Physical Exam Physical Exam General: Awake, alert, NAD. Ill-appearing HEENT: Atraumatic, EOMI, PERRL, airway patent, moist oral mucosa Neck: Supple, trachea midline Respiratory: CTA bilaterally, normal effort, no wheezing/crackles CV: Regular rhythm tachycardia, no murmur, cap refill <2 GI: Soft, nondistended, nontender, no masses MSK: No obvious deformities Skin: Warm, dry, intact Neuro: A&O x3, speech NL, sensory and motor grossly intact, no focal deficits Psych: Normal affect, normal mood, not suicidal or homicidal Current Patient Data Vital Signs Vital Signs Date Time Temp Pulse Resp B/P (MAP) Pulse Ox O2 Delivery O2 Flow Rate FiO2 04/02/20 04:56 179 122/72 04/02/20 04:25 18 94 Room Air 04/02/20 03:10 98.5 Lab Results Laboratory Tests Test 04/02/20 03:45 White Blood Count 8.2 x10^3/uL (4.0-11.0) Red Blood Count 3.31 x10^6/uL (4.30-5.70) L Hemoglobin 9.7 g/dL (13.0-17.5) L Hematocrit 30.4 % (39.0-53.0) L Mean Corpuscular Volume 92 fL (79-100) Mean Corpuscular Hemoglobin 29 pg (25-35) Mean Corpuscular Hemoglobin Concent 32 g/dL (31-37) Red Cell Distribution Width 14.7 % (11.5-14.5) H Platelet Count 224 x10^3/uL (140-400) Neutrophils (%) (Auto) 88 % (31-73) H Lymphocytes (%) (Auto) 7 % (24-48) L Monocytes (%) (Auto) 3 % (0-9) Eosinophils (%) (Auto) 2 % (0-3) Basophils (%) (Auto) 0 % (0-3) Neutrophils # (Auto) 7.2 x10^3uL (1.8-7.7) Lymphocytes # (Auto) 0.6 x10^3/uL (1.0-4.8) L Monocytes # (Auto) 0.2 x10^3/uL (0.0-1.1) Eosinophils # (Auto) 0.2 x10^3/uL (0.0-0.7) Basophils # (Auto) 0.0 x10^3/uL (0.0-0.2) Platelet Estimate Adequate (ADEQUATE) Sodium Level 138 mmol/L (136-145) Potassium Level 3.8 mmol/L (3.5-5.1) Chloride Level 104 mmol/L (98-107) Carbon Dioxide Level 27 mmol/L (21-32) Anion Gap 7 (6-14) Blood Urea Nitrogen 42 mg/dL (8-26) H Creatinine 7.2 mg/dL (0.7-1.3) H Estimated GFR (Cockcroft-Gault) 7.9 BUN/Creatinine Ratio 6 (6-20) Glucose Level 180 mg/dL (70-99) H Calcium Level 9.1 mg/dL (8.5-10.1) Total Bilirubin 0.3 mg/dL (0.2-1.0) Aspartate Amino Transferase (AST) 13 U/L (15-37) L Alanine Aminotransferase (ALT) 9 U/L (16-63) L Alkaline Phosphatase 58 U/L (46-116) Troponin I Quantitative 0.026 ng/mL (0-0.055) Total Protein 5.2 g/dL (6.4-8.2) L Albumin 1.3 g/dL (3.4-5.0) L Albumin/Globulin Ratio 0.3 (1.0-1.7) L EKG EKG [] Radiology/Procedures Radiology/Procedures [] Heart Score Risk Factors: Risk Factors: DM, Current or recent (<one month) smoker, HTN, HLP, family history of CAD, obesity. Risk Scores: Risk Factors: DM, Current or recent (<one month) smoker, HTN, HLP, family history of CAD, obesity. Course & Med Decision Making Course & Med Decision Making Pertinent Labs and Imaging studies reviewed. (See chart for details) Patient is 60-year-old male who presents to the emergency room complaining of generalized weakness and palpitations. Upon arrival to the emergency room patient initially was in a normal sinus rhythm with tachycardia. Shortly after arrival he went into SVT with rates in the 180s. He was given diltiazem with significant improvement in rate. Patient however did go into atrial fibrillation. He has never had cardiac arrhythmias previously. Patient required a second dose of diltiazem and then was placed on a diltiazem drip for new onset atrial fibrillation. Lab work is stable. Patient will be transferred to [facility] as he will need dialysis which we are unable to do here at [facility]. Dragon Disclaimer Dragon Disclaimer This electronic medical record was generated, in whole or in part, using a voice recognition dictation system. Departure Departure: Impression: Primary Impression: New onset atrial fibrillation Additional Impression: SVT (supraventricular tachycardia) Disposition: 02 DC/TRF OTHER SHORT TERM HOS Condition: IMPROVED Referrals: RAÚL CASILLAS MD (PCP) Problem Qualifiers CHRISTA JACKSON MD Apr 02, 2020 05:52
[2020-04-02 06:30] VITALS: BP 124/65
== END 2020-04-02 07:10 | disposition short-term general hospital (02) ==
LOC: ER 03:06
DX: I48.91 Unspecified atrial fibrillation (principal); I47.1 Supraventricular tachycardia; M19.90 Unspecified osteoarthritis, unspecified site; K21.9 Gastro-esophageal reflux disease without esophagitis; E78.00 Pure hypercholesterolemia, unspecified; I13.0 Hypertensive heart and chronic kidney disease with heart failure and stage 1 through stage 4 chronic kidney disease, or unspecified chronic kidney disease; E11.22 Type 2 diabetes mellitus with diabetic chronic kidney disease; N18.9 Chronic kidney disease, unspecified; I50.9 Heart failure, unspecified; Z88.8 Allergy status to other drugs, medicaments and biological substances; Z91.040 Latex allergy status
CPT/HCPCS: 36415; 71045; 80053; 84484; 85025; 93005; 96365; 96366; 96376; 99285; J3490